=== PATIENT | female | born 1960 | race Hispanic/Latino ===

== ENCOUNTER 2022-08-05 15:26 | Inpatient (IN) | payer MEDICAID, SELFPAY ==
[2022-08-05] VITALS (7 sets, daily range): BP systolic 116–140; BP diastolic 52–74; PULSE 62–76; RESP 12–20; TEMP 36.8; O2SAT 97–100; BMI 29.3
--- NOTE | ~2022-08-05 | XR_ITS ---
EXAMINATION: XR abdomen obstructive series DATE: 08/09/2022 08:36 INDICATION: Small bowel obstruction. TECHNIQUE: Upright and supine views of the abdomen were obtained. COMPARISON: CT abdomen and pelvis 08/05/2022 FINDINGS: There are no dilated loops of bowel. There is oral contrast in the colon. The nasogastric t ube tip is in the stomach. No free intraperitoneal gas. IMPRESSION: 1. Normal bowel gas pattern. Reviewed, dictated and finalized at location A.
--- NOTE | ~2022-08-05 | CT_ITS ---
EXAMINATION: CT abdomen pelvis w con DATE: 08/05/2022 18:18 INDICATION: Severe upper abdominal pain, radiating to the back. Nausea, vomiting. History of cholecys tectomy 30 years ago TECHNIQUE: Computed tomography (CT) of the abdomen and pelvis was performed with 100 CC Omnipaque 350 intravenous contrast. Automated exposure control and iterative reconstruction technique were employe d. Exam dose: 329.98 mGy-cm total exam DLP. COMPARISON: None. FINDINGS: Minimal atelectasis at the lung bases. Normal heart size. No pericardial or pleural effusio n. Diffuse hepatic steatosis. There may be focal fat sparing or small cyst or hemangioma at the anterome dial margin of the lower right hepatic lobe (series 3 image 67). No hepatic space-occupying mass lesi on is noted otherwise. No bile duct or pancreatic duct dilatation. No pancreatic mass lesion or calci fication. Normal splenic size. Normal morphology of the left adrenal gland. Approximately 1.5 x 2.1 cm right adrenal mass. There is no known malignancy this is most likely an ad enoma. There are 2 lower pole right renal cysts, the larger measuring 9 mm. Probable several millimeter lowe r pole left renal cyst. No urinary tract calculus or hydroureteronephrosis. The urinary bladder is un remarkable. Uterus and ovaries are unremarkable. There is nonspecific mild fluid in the anterior cul-de-sac and posterior cul-de-sac. Normal caliber of the abdominal aorta. No intraperitoneal or retroperitoneal or pelvic mass lesion or adenopathy or ascites is detected. The gastric fundus and body or distended with fluid. There are jejunal segment is dilated up to 7 and 3.4 cm diameter, with fluid levels without identification of a definite transition zone. The distal small bowel however is decompressed. Diffusion diagnosis includes partial small bowel obstruction, in ternal hernia, enteritis, adynamic ileus. There are fluid levels in the ascending colon. Normal appendix. No suspicious osteolytic or osteoblastic lesions are noted. IMPRESSION: Dilated jejunal segments up to 3.8 cm diameter, with air-fluid levels. Differential diag nosis is given above. Consider small bowel series for further evaluation as clinically appropriate 1.5 x 2.1 cm right adrenal mass Small renal cysts Normal appendix Hepatic steatosis Reviewed, dictated and finalized at Location A. Reviewed, dictated and finalized at location A. IMPRESSION: Dilated jejunal segments up to 3.8 cm diameter, with air-fluid lev els. Differential diagnosis is given above. Consider small bowel series for fur ther evaluation as clinically appropriate 1.5 x 2.1 cm right adrenal mass Small renal cysts Normal appendix Hepatic steatosis
--- NOTE | ~2022-08-05 | XR_ITS ---
SMALL BOWEL SERIES ONLY INDICATION: Abdominal distention TECHNIQUE: Serial plain films and fluoroscopic spot films are performed following oral demonstration of thin barium. COMPARISON: CT dated 08/05/2022 FINDINGS: The duodenum and jejunum are dilated with transition in the distal jejunum. Transit time to the colon is less than 2 hours. The mid and distal small bowel are decompressed. IMPRESSION: 1: Dilated proximal small bowel with transition in the distal jejunum. Distal small bowel is decompr essed. Findings compatible with partial small bowel obstruction. Reviewed, dictated and finalized at location A. IMPRESSION: 1: Dilated proximal small bowel with transition in the distal jejunum. Distal small bowel is decompressed. Findings compatible with partial small bowel obstr uction.
--- NOTE | ~2022-08-05 | XR_ITS ---
XR chest 2V DATE: 08/05/2022 19:25 INDICATION: Upper abdominal pain TECHNIQUE: AP and lateral chest COMPARISON: 08/01/2022 CT abdomen pelvis FINDINGS: Normal heart size. No hilar or mediastinal enlargement. No pulmonary infiltrate or consolidation, pleural effusion or pulmonary vascular congestion or pneumo thorax. IMPRESSION: No active cardiopulmonary disease Reviewed, dictated and finalized at location A.
--- NOTE | ~2022-08-05 | XR_ITS ---
EXAMINATION: XR abdomen obstructive series DATE: 08/08/2022 08:45 INDICATION: Small bowel obstruction. TECHNIQUE: Upright and supine views of the abdomen on 3 radiographs were obtained. COMPARISON: CT abdomen and pelvis 09/04/2022 FINDINGS: There are no dilated loops of bowel. There is oral contrast in the colon. No free intraperi toneal gas. The nasogastric tube tip is in the stomach. IMPRESSION: 1. Normal bowel gas pattern. Reviewed, dictated and finalized at location A.
--- NOTE | ~2022-08-05 | XR_ITS ---
XR abdomen/kub 1V 08/07/2022 13:09 Indication: Small bowel obstruction Procedure: KUB Comparison: 08/06/2022 Findings: NG tube coiled in the stomach, partially visualized. There is been passage of contrast into the colon. Normal-appearing appendix. No significant small bowel dilation on the current study. Impression: 1: No definite small bowel dilation. Interval passage of contrast into the colon. Reviewed, dictated and finalized at location B. Impression: 1: No definite small bowel dilation. Interval passage of contrast into the colo n.
--- NOTE | ~2022-08-05 | XR_ITS ---
XR abdomen NG/feed tube insert DATE: 08/06/2022 15:29 INDICATION: NG tube placement TECHNIQUE: Portable upright AP abdomen on 08/06/2022 at 1525 hours COMPARISON: None FINDINGS: A nasogastric tube is present in the gastric fundus, the proximal side-port approximately 9 cm distal to the diaphragmatic hiatus. Dilated jejunum with contrast material is again noted. IMPRESSION: NG tube in gastric fundus Reviewed, dictated and finalized at Location A. Reviewed, dictated and finalized at location A. IMPRESSION: NG tube in gastric fundus
--- NOTE | 2022-08-05 15:52 | ED.ABDPAIN ---
HPI - Abdominal Pain General Chief Complaint: Abdominal Pain Stated Complaint: abdominal pain that began yesterday with n/v Time Seen by Provider: 08/05/22 15:36 Source: certified court/medical interpreter History of Present Illness HPI narrative: Patient is a 62-year-old female with a history of cholecystectomy 30 years ago, pre-diabetes, hyperlipidemia here for evaluation of severe abdominal pain for the past day. Patient states the pain is in her upper region, is severe, stabbing in nature, is unrelieved by home medications including Bentyl. The pain came on after a meal last night. Also notes pain in her back. Patient was seen in the ED at [facility] yesterday and had a normal workup and was diagnosed with gastritis. Patient states the pain is not any better and worsened today. Denies any diarrhea, fever, weakness. Last BM was at 1PM today and was small in caliber. Reports diarrhea over the past week. Had one episode of vomiting non-bloody emesis yesterday. Related Data Allergies Allergy/AdvReac Type Severity Reaction Status Date / Time No Known Allergies Allergy Unverified 06/24/20 12:20 Review of Systems Review of Systems: Gen: Denies fevers or chills Eyes: Denies eye pain or visual change ENT: Denies congestion Respiratory: Denies shortness of breath or cough CV: Denies chest pain or palpitations GI: Denies abdominal pain nausea, emesis or diarrhea : denies burning, urgency, frequency or hematuria Musculoskeletal: Denies back pain or muscle pain Neuro: Denies numbness, tingling, weakness or focal weakness Skin: Denies rash Except as documented, all other systems reviewed and negative Exam Narrative: APPEARANCE: Uncomfortable appearing. Head: Normocephalic and atraumatic. EYES: PERRLA/EOMI, conjunctivae clear NOSE: No nasal drainage EARS: External ear normal in appearance THROAT: Oropharynx is clear. Mucous membranes are moist. NECK: Supple. No adenopathy, no masses. RESPIRATORY: Airway patent, respirations nonlabored. Clear to auscultation bilaterally, no rales, rhonchi, wheezing. CARDIOVASCULAR: 2/6 systolic murmur at RUSB. Regular rate and rhythm without rubs or gallops. equal pulses in all 4 extremities. ABDOMINAL: tender in epigastrium, abdomen is not distended. Normoactive bowel sounds. Soft. No rebound tenderness or guarding. MUSCULOSKELETAL: Extremities are warm and well-perfused. Moves all extremities well. No edema. NEURO: Normal speech. No focal neurologic deficits. SKIN: vertical surgical scar over RUQ. PSYCHIATRIC: Normal affect/mood. Course Consultations Consultation #1: Spoke with Dr. Palencia, general surgery, states that patient may be admitted to hospitalist for pain control, CT without transition point and is reassuring patient is moving her bowels, will consult Vital Signs Vital signs: Vital Signs Temperature 98.2 F 08/05/22 15:27 Pulse Rate 62 08/05/22 15:27 Respiratory Rate 12 08/05/22 15:27 Blood Pressure 126/58 L 08/05/22 15:27 Pulse Oximetry 98 08/05/22 15:27 Oxygen Delivery Room Air 08/05/22 15:27 Temperature 98.2 F 08/05/22 15:27 Pulse Rate 74 08/05/22 18:30 Respiratory Rate 20 08/05/22 18:30 Blood Pressure 116/61 08/05/22 18:30 Pulse Oximetry 98 08/05/22 18:30 Oxygen Delivery Room Air 08/05/22 15:27 MDM - Abdominal Pain MDM Narrative Medical decision making narrative: 62-year-old female here for evaluation of epigastric abdominal discomfort over the past day with 1 episode of vomiting and no changes in her stools. On arrival she is very uncomfortable appearing, tender in her epigastric region. Her vital signs are normal. She has a slight leukocytosis to 13.4 but her lactic is normal. UA unremarkable. Abdomen pelvis CT with distended jejunum of unclear etiology; possible SBO vs ileus vs enteritis.unclear if this is explaining patient's pain. Cardiac work-up was initiated with an EKG and troponin, both of which were nonischemic. Longevity of pain and lack of
--- NOTE | 2022-08-05 15:56 | ECG_ITS ---
Measurements Intervals [place] Rate: 64 P: 37 GA: 131 QRS: -4 QRSD: 134 T: 30 QT: 403 QTc: 418 Interpretive Statements SINUS RHYTHM WITH SINUS ARRHYTHMIA RIGHT BUNDLE BRANCH BLOCK ABNORMAL ECG COMPARED TO ECG 02/10/2019 16:19:18 NO SIGNIFICANT CHANGES Electronically Signed On 08-05-2022 18:25:33 CDT by Anibal Herbert D.O.
[2022-08-05 15:58] LABS: Basophils Absolute Auto 0.1 K/mm3 (0.0-0.1); Basophils Percent Auto 0.4 % (0.2-1.2); Eosinophils Absolute Auto 0.2 K/mm3 (0-0.3); Eosinophils Percent Auto 1.2 % (0-4.4); Hematocrit 36.9 % (37.0-47.0); Hemoglobin 12.5 g/dL (12.0-15.0); Immature Granulocyte Absolute 0.09 K/mm3 (0.00-0.031); Immature Granulocyte Percent A 0.7 % (0-0.5); Immature Platelet Fraction Pct 10.8 % (0.9-11.2); Lymphocytes Absolute Auto 1.67 K/mm3 (0.9-3.2); Lymphocytes Percent Auto 12.5 % (18.3-44.2); Mean Corpuscular HGB Conc 33.9 g/dl (32-36); Mean Corpuscular Volume 88.7 fl (80-100); Mean Platelet Volume 11.2 fl (7.4-10.4); Monocytes Absolute Auto 1.3 K/mm3 (0.1-0.6); Monocytes Percent Auto 9.4 % (2.6-8.5); Neutrophils Absolute Auto 10.1 K/mm3 (1.3-6.7); Neutrophils Percent Auto 75.8 % (45.5-73.1); Platelet Count Result 60 k/mm3 (150-375); Red Blood Count 4.16 M/mm3 (4.2-5.4); Red Cell Distribution Width 13.5 % (11.5-14.5); White Blood Count 13.4 K/mm3 (4.5-10.0)
[2022-08-05] MEDS: ONDANSETRON INJ 4 MG/2 ML VIAL IV PUSH (16:01)
[2022-08-05] MEDS: FAMOTIDINE 20 MG/2 ML VIAL IV PUSH (16:02)
[2022-08-05] MEDS: MORPHINE SULFATE (*CRX) 4 MG/ML INJ IV PUSH (16:05)
[2022-08-05 16:12] LABS: Alanine Aminotransferase 43 U/L (6-35); Albumin Level 3.5 g/dL (3.5-5.1); Alkaline Phosphatase 60 U/L (38-126); Anion Gap 7 mmol/L (8-16); Aspartate Amino Transferase 44 U/L (14-36); Bilirubin,Total 0.6 mg/dL (0.2-1.3); Blood Urea Nitrogen 21 mg/dL (7-17); Calcium 7.8 mg/dL (8.4-10.2); Carbon Dioxide 28 mmol/L (22-30); Chloride 100 mmol/L (98-107); Estimated CRCL calculation 56 ml/min; Estimated Glomerular Filt Rate > 60; Glucose 132 mg/dL (65-110); Lipase 14 U/L (23-300); Sodium 135 mmol/L (137-145)
[2022-08-05 16:32] LABS: Troponin I < 0.012 ng/mL (0.000-0.034)
[2022-08-05 18:14] LABS: Appearance Urine Slightly Cloudy (Clear); Bilirubin Urine 1+ (Negative); Blood Urine Negative (Negative); Color Urine Yellow (Yellow); Glucose Urine UA Negative (Negative); Ketones Urine 1+ mg/dL (Negative); Leukocyte Esterase Ur Negative LEU/UL (Negative); Nitrate Urine Negative (Negative); Protein Urine Trace mg/dL (Negative); pH Urine 6.5 (5.0-9.0)
[2022-08-05 18:30] LABS: Bacteria Urine Trace /hpf; Mucus Urine Rare /lpf; RBC Urine 0-2 /hpf (0-2); Squamous Epithelial Cell Urine Rare /hpf (Few); WBC Urine 0-3 /hpf
[2022-08-05 18:44] LABS: Add Urine Microscopic? YES
[2022-08-05] MEDS: SODIUM CHLORIDE 0.9% IV 1,000 ML 999 ML IV CONT (19:06)
[2022-08-05] MEDS: MORPHINE SULFATE (*CRX) 2 MG/ML INJ IV PUSH (19:06)
[2022-08-05 19:16] LABS: Lactic Acid Reflex 0.8 mmol/L (0.7-2.0)
--- NOTE | 2022-08-05 19:29 | PM.IMHP ---
H&P: HPI History of Present Illness Date/Time: 08/05/22 19:29 Chief Complaint: Abdominal pain Narrative: This is a 62-year-old female with past medical history significant for type 2 diabetes mellitus, hypertension, dyslipidemia. patient comes to the emergency room due to abdominal pain with nausea and vomiting just recently discharged from [facility] where she presented for same symptoms she was discharged home but returned to our emergency room due to intractable nausea vomiting and abdominal pain patient denies any fevers, rigors, chills, shortness of breath, sputum production, cough, hematemesis, bright red blood per rectum, melena, she has been in her usual state of health up until this pain started 2 days ago, No weight loss, no change in stool character, she is usually able to tolerate or her meals. Preliminary workup was significant for AST/ALT 44/46 total bili 0.6 lipase 14 lactic acid 0.[id number] of abdomen and pelvis was reported as: IMPRESSION:? Dilated jejunal segments up to 3.8 cm diameter, with air-fluid levels. Differential diagnosis is given above. Consider small bowel series for further evaluation as clinically appropriate 1.5 x 2.1 cm right adrenal mass Small renal cysts Normal appendix Hepatic steatosis a chest x-ray was reported as: IMPRESSION: No active cardiopulmonary disease? patient is been admitted for further evaluation management and treatment. Review of Systems Review of Systems: abdominal pain, nausea, vomiting. Constitutional: Constitutional: Denies chills, Denies fever(s), Denies malaise, Denies night sweats and Denies weakness Eyes: Eyes: Denies change in vision ENT: Denies dysphagia, Denies vertigo, Denies dizziness and Denies odynophagia Cardiovascular: Cardiovascular: Denies chest pain, Denies syncope, Denies irregular heart rhythm, Denies lightheadedness and Denies palpitations Respiratory: Respiratory: Denies chest congestion, Denies cough, Denies pain on inspiration and Denies dyspnea Gastrointestinal: Gastrointestinal: Reports abdominal pain, Denies dyspepsia, Denies heartburn, Reports nausea and Reports vomiting Genitourinary: Genitourinary: Denies dysuria Musculoskeletal: Musculoskeletal: Denies back pain, Denies myalgias and Denies muscle weakness Integumentary/Breasts: Skin/Breast: Denies rash Neurologic: Denies vertigo, Denies dizziness, Denies focal weakness and Denies Sensory deficit (Neuro) Psychiatric: Psychiatric: Reports no additional psychiatric complaints and Reports as per HPI Endocrine: Endocrine: Denies cold intolerance, Denies flushing, Denies heat intolerance, Denies polyphagia, Denies polydipsia and Denies palpitations Hematologic/Lymphatic: Hematologic/Lymphatic: Reports no additional hematologic/lymphatic complaints and Reports as per HPI Allergic/Immunologic: Allergic/Immunologic: Reports no additional allergic/immunologic complaints and Reports as per HPI [facility] Social History Social History (System 06/24/20 @ 12:20 by Adrian Moya) Smoking packs per day: 1 Smoking cigarettes per day: 20.0 Years smoked: 40 Smoking pack-years: 40.00 Smoking status: Current every day smoker Tobacco type: cigarettes and e-cigarettes/vaping Alcohol intake: never Substance use: never Spiritual care concerns: No Meds Home Medications and Allergies Home Medications Medication Instructions Recorded Confirmed Type fenofibrate 40 mg tablet 40 mg PO HS 08/05/22 08/05/22 History levothyroxine 125 mcg tablet 125 mcg PO DAILY 08/05/22 08/05/22 History meloxicam 7.5 mg tablet 7.5 mg PO PRN PRN ARTHRITIS PAIN 08/05/22 08/05/22 History metformin 500 mg tablet 500 mg PO DAILY 08/05/22 08/05/22 History metoprolol succinate 25 mg 25 mg PO DAILY 08/05/22 08/05/22 History tablet,extended release 24 hr Allergies Allergy/AdvReac Type Severity Reaction Status Date / Time No Known Allergies Allergy Verified 08/05/22 21:28 Vital
--- NOTE | 2022-08-05 22:09 | ADMGEN ---
This patient, Virgie Polo, was admitted to 3 [facility] Surg Room 313-01 at 2109. Patient/family oriented to hospital policies and general routines including ID bracelet, bed and alarms, visiting hours, pain management, procedures, bathroom and other care routines, personal items, smoking policy, room service/diet, and visiting hours. Information on how to activate the Rapid Response Team has been discussed. Patient/Family are encouraged to report perceived risks to care and to ask questions if they do not understand what they are told or what they should do.
[2022-08-05] MEDS: HYDROmorphone HCL INJ (*CRX) 1 MG/ML SYR 0.5 MG IV PUSH (23:23)
[2022-08-06] MEDS: DEXTROSE 5%/0.45% SOD CHL 1,000 ML 75 ML IV CONT (00:55)
[2022-08-06] MEDS: ONDANSETRON INJ 4 MG/2 ML VIAL IV PUSH ×2 (02:09→12:00)
[2022-08-06] MEDS: HYDROmorphone HCL INJ (*CRX) 1 MG/ML SYR 0.5 MG IV PUSH ×5 (02:39→22:12)
[2022-08-06 05:45] VITALS: BP 115/45; PULSE 75; RESP 14; TEMP 36.6; O2SAT 100
[2022-08-06 08:25] LABS: Glucose Point of Care 153 mg/dl (65-105)
[2022-08-06 08:42] LABS: Hematocrit 36.1 % (37.0-47.0); Hemoglobin 12.1 g/dL (12.0-15.0); Immature Platelet Fraction Pct 13.7 % (0.9-11.2); Mean Corpuscular HGB Conc 33.5 g/dl (32-36); Mean Corpuscular Hemoglobin 30.2 pg (26-34); Mean Platelet Volume 11.7 fl (7.4-10.4); Platelet Count Result 77 k/mm3 (150-375); Red Blood Count 4.01 M/mm3 (4.2-5.4); Red Cell Distribution Width 13.8 % (11.5-14.5)
--- NOTE | 2022-08-06 10:31 | PM.CNGS ---
Assessment and Plan Assessment and plan (1) Small bowel obstruction: Code(s): K56.609 - Unspecified intestinal obstruction, unspecified as to partial versus complete obstruction Status: Acute Assessment and Plan: patient has some findings on the CT concerning for small bowel obstruction. He does have a prior history of open cholecystectomy, therefore adhesions would be suspected. She is in the process of getting a small-bowel follow-through at this time. She has not had an NG tube placed yet, but based on the CT findings she will possibly need NG tube placed. Will await follow-up imaging and determine further treatment options from there. If small-bowel follow-through shows complete obstruction, she might require surgical exploration in the next 1-2 days. (2) Thrombocytopenia: Code(s): D69.6 - Thrombocytopenia, unspecified Status: Acute Assessment and Plan: Platelets noted to be very low on admission and remain at 77,000 today. No known prior history of coagulopathy. Will check PT INR and repeat CBC tomorrow. History of Present Illness Consult details Consult date: 08/06/22 Reason for consult: other ( Small-bowel obstruction) Narrative: this is a 62-year-old woman who I am asked to see for a possible small-bowel obstruction. She presented to the emergency department yesterday with abdominal pain for the past several days. She has not had a bowel movement for 2-3 days. She continues to have pain since being admitted last night. She does have a prior history of an open cholecystectomy. She denies any symptoms like this in the past. CT in the emergency department showed dilated jejunum with air-fluid levels without definite transition point. She was admitted for further treatment. Review of Systems Review of Systems: All systems reviewed & are unremarkable except as noted in HPI and below Eyes: Eyes: Denies change in vision ENT: Denies hearing loss, Denies neck pain and Denies sore throat Cardiovascular: Cardiovascular: Denies chest pain and Denies dyspnea Respiratory: Respiratory: Denies cough, Denies dyspnea and Denies wheezing Gastrointestinal: Gastrointestinal: Reports as per HPI Genitourinary: Genitourinary: Denies hematuria and Denies dysuria Musculoskeletal: Musculoskeletal: Denies arthralgias, Denies joint swelling and Denies neck pain Allergic/Immunologic: Allergic/Immunologic: Denies wheezing [facility] Past Medical History Medical History (Updated 08/06/22 @ 10:36 by Mark Anthony Palencia DO) Hyperlipidemia Hypertension Hypothyroidism Surgical History Surgical History (Updated 08/06/22 @ 10:36 by Mark Anthony Palencia DO) History of cholecystectomy Family History Family History (Updated 08/06/22 @ 10:37 by Mark Anthony Palencia DO) Other Family history unknown Social History Social History (System 06/24/20 @ 12:20 by Adrian Moya) Smoking packs per day: 1 Smoking cigarettes per day: 20.0 Years smoked: 40 Smoking pack-years: 40.00 Smoking status: Current every day smoker Tobacco type: cigarettes and e-cigarettes/vaping Alcohol intake: never Substance use: never Spiritual care concerns: No Meds Home Medications and Allergies Home Medications Medication Instructions Recorded Confirmed Type fenofibrate 40 mg tablet 40 mg PO HS 08/05/22 08/05/22 History levothyroxine 125 mcg tablet 125 mcg PO DAILY 08/05/22 08/05/22 History meloxicam 7.5 mg tablet 7.5 mg PO PRN PRN ARTHRITIS PAIN 08/05/22 08/05/22 History metformin 500 mg tablet 500 mg PO DAILY 08/05/22 08/05/22 History metoprolol succinate 25 mg 25 mg PO DAILY 08/05/22 08/05/22 History tablet,extended release 24 hr blood-glucose meter (True Metrix 08/06/22 08/06/22 History Glucose Meter) Allergies Allergy/AdvReac Type Severity Reaction Status Date / Time No Known Allergies Allergy Verified 08/05/22 21:28 Vital Signs Vital Signs - 24 hr 08/05/22 15:
--- NOTE | 2022-08-06 11:00 | PC.NURSE ---
At approximately 0830, pt was taken to radiology for a small bowel follow through procedure. At approximately 1100, I was summoned to pt's room by alleged members of pt's family. Upon entering the room, I find four people in the room including one person lounging on the bed and three other people scattered throughout the room. There were 3 women and 1 man. Multiple people began yelling at me and demanding information, I was not able to understand what was being yelled due to multiple people simultaneously yelling at me and the television volume extremely loud (the person laying on the bed was flipping through tv channels). I attempted to state my name and explain that I was the nurse when the male person demanded to know where the patient was. I replied, she is having a procedure when he interrupted me by snapping, she's been gone a long time and it should have been done by now. The doctor said he doesn't know what is taking so long. Where is she? I attempted to answer the question when several of the women began talking loudly in [place] simultaneously. I do not speak [place] so had to idea what they were saying. I began switching out the IV fluids so they would be ready for administration upon pt's return all the while they were all yelling in [place] simultaneously. I then explained that I do not know when the pt will return as the procedure can take a long time; however, there are only 2 visitors allowed in the room at any given time and that visiting hours are from 10am to 8pm. Several of the people began yelling again. I reiterated that there are only 2 visitors allowed in the room at any given time and the remaining people can wait downstairs in the lobby and they can take turns switching places in the pt's room. The person on the bed finally got off the bed, they all four started speaking in [place] to one another and then they all left the room. I finished prepping the IV fluids and left the room.
[2022-08-06] MEDS: LACTATED RINGERS 1,000 ML 100 ML IV CONT ×2 (11:51→20:47)
[2022-08-06] MEDS: PANTOPRAZOLE SODIUM IV 40 MG VIAL IV PUSH ×2 (11:51→20:38)
[2022-08-06 11:58] LABS: Glucose Point of Care 143 mg/dl (65-105)
--- NOTE | 2022-08-06 14:16 | PC.NURSE ---
At approximately 1230, I entered pt's room to check on her. Pt speaks minimal to no Hebrew. Pt kept stating enmanuel which I knew meant she needed to go to the bathroom. I assisted pt with IV pole to the bathroom. Pt removed the hat from the toilet. I put the hat back and tried to explain that the had needed to remain so we could measure output but I got no sense that she understood what I was saying. Pt began projectile vomiting into the hat. After several bouts of vomiting, pt dumped the hat and then sat down on the toilet. I attempted to help but pt kept pushing me away. When pt had returned from radiology, the tech (who speaks Serbian fluently) informed me that pt had told her that she had a bowel movement while in radiology. I thought pt might be attempting to have another but she did not. By this time the AQUATIC ECOLOGIST had come to the room to assist me in cleaning up pt and providing additional emesis bags. The AQUATIC ECOLOGIST informed me that pt had projectile vomiting prior to going to radiology which is similar in color and volume as the present episode. Pt was cleaned up and returned to the bed. I administered zofran, charted the emesis episodes, and contacted the hospitalist regarding the aforementioned episodes.
--- NOTE | 2022-08-06 14:32 | PC.NURSE ---
At approximately 1400, I was informed by the CHILDREN LIBRARIAN that pt's family had returned to pt's room and was demanding to speak with me. I was also made aware that the CHILDREN LIBRARIAN witnessed the family members giving pt water and trying to give her other items to be ingested. It was explained to them that pt was and remains NPO therefore it is unsafe for her to be having anything. Upon entering the room, there were 2 women in the room one of which was standing between the window and pt's bed and was pushing buttons on the IV pump. She looked up at me, made eye contact and stopped. As I walked towards the IV pump, I made eye contact with the other woman and stated that I was informed she wanted to talk to me and asked her if she had questions. I then stated to the woman by the IV pump, excuse me I need to fix that and pointed to the pump. She came away from the IV pump and exchanged looks with the other woman. I asked again, Do you have questions for me or is there something you wanted to talk about? They both ignored me. The pt, who had been laying in the bed with her eyes closed, sat up and stated in Qatari that I wanted to know if they had questions (I recognized enough Qatari words to know that is what she was saying). One of the women then stated in clear [place]ian, my brother would be the best one to talk to I will go get him, and she left the room. The brother entered the room and asked if the reports from the scan was back. I explained that pt has had several scans and the most recent one which was the follow through study report was back and it states that pt has a small bowel obstruction. I explained that pt is going to need to have an NG tube placed and that it should help with the pain and vomiting. He seemed pleased with the information and that there was a plan going forward. I stated that normally we ask visitors to leave while a procedure if performed but due to the language barriers it would be appreciated if he could continue translating to assist in making the procedure which requires pt's participation easier and more successful for pt. He agreed so I explained the process of inserting the NG tube so that he could explain it to the pt. He spoke to her in Qatari which I assumed was translating what I explained to him. The man then asked me how long have only 2 people been allowed in the room. I did not understand and thought he meant patients so I replied that this was a private room. He stated how long have only 2 visitors been allowed in the room. I explained that the policy regarding visitors is set by the administrators and I have no control over it but that many of the rooms have 2 patients so that 2 visitors per patient and now 6 people in a room that is already crowded with 2 patients and 2 sets of beds, IV poles, chairs, etc. He cut me off and stated that some man, not you, but some other man yelled at them about visitors. During this the woman who remained in the room interjected that that man gave attitude and then she got up and left the room. The man in the room continued that they understand the rules now and will follow them but some man yelled at them and there is a way to present things and that was not it. I stated, I'm sorry that happened to you to which he replied, it wasn't you it is that other man, you're fine. I attempted to start the procedure to place the NG tube and the man asked me to wait stating, my mother is more comfortable with my sister I will go get her and let her help you. He left the room. I was then informed by the charge nurse that pt's family was requesting a different nurse.
[2022-08-06] MEDS: PROMETHAZINE HCL 25 MG/ML AMPUL 12.5 MG IV PUSH (14:36)
--- NOTE | 2022-08-06 15:32 | PM.IMPN ---
Progress Note: A&P Assessment and Plan (1) Epigastric abdominal pain: Code(s): R10.13 - Epigastric pain Status: Acute Assessment and Plan: supportive care NPO IV fluids daily intake and output surgical consult likely related to sb0 (2) Intractable nausea and vomiting: Code(s): R11.2 - Nausea with vomiting, unspecified Status: Acute Assessment and Plan: NPO supportive care PPI see plan above (3) Tobacco dependence: Code(s): F17.200 - Nicotine dependence, unspecified, uncomplicated Status: Acute Assessment and Plan: nicotine patch as needed patient used to smoke 1 pack of cigarettes a day currently vapes Subjective Date/time seen: 08/06/22 15:32 haivng ongoing nv Exam Narrative: Laying in a stretcher Const: General: comfortable, no acute distress, well developed, alert, awake and other ( well-appearing) Nutritional Appearance: average body habitus Orientation/consciousness: patient oriented x3 HENMT: Head: normal to inspection, normocephalic and atraumatic Ears: hearing grossly normal bilaterally Face and sinus: normal facial exam Eyes: General: appearance normal, both eyes and all related structures Pupils: Equal, round and reactive pupils present EOM: EOMs intact bilaterally Neck: Neck: full ROM, no lymphadenopathy and no JVD Thyroid: thyroid normal Lymphatic: no lymphadenopathy noted Resp: Effort & Inspection: normal respiratory effort and able to speak in complete sentences Auscultation: clear to auscultation bilaterally Cardio: Jugular venous distension: no JVD Rate: regular rate Rhythm: regular rhythm Heart sounds: S1 normal heart sound present and S2 normal heart sound present GI: Inspection: normal to inspection : General: Yes deferred Skin: Rashes: no rashes Wounds: no wounds Neuro: General: patient oriented x3 and CN's II-XI intact bilaterally Cranial nerves: Yes CN's II-XII intact bilaterally and Yes Equal, round and reactive pupils present Cognition (Neuro): normal cognition Speech: normal speech Gait exam (Neuro): Normal gait present Motor exam (neuro): 5/5 motor strength present throughout Sensory Exam: No Sensory deficit (Neuro) Extrem: General: normal to inspection, full ROM, no joint enlargement and no pedal edema Objective Data Vital Signs Vital Signs: Vital Signs - 24 hr 08/05/22 18:30 08/05/22 16:35 08/05/22 17:30 Temperature Pulse Rate 74 76 70 Respiratory Rate 20 19 20 Blood Pressure 116/61 132/74 140/63 Pulse Oximetry 98 100 100 Oxygen Delivery 08/05/22 20:04 08/05/22 21:57 08/05/22 22:40 Temperature 98.2 F Pulse Rate 76 75 75 Respiratory Rate 20 14 14 Blood Pressure 123/63 120/52 L Pulse Oximetry 100 97 97 Oxygen Delivery Room Air 08/06/22 05:45 08/06/22 08:00 Temperature 97.9 F Pulse Rate 75 Respiratory Rate 14 Blood Pressure 115/45 L Pulse Oximetry 100 Oxygen Delivery Room Air Intake/Output Intake/Output: Intake & Output 08/03/22 08/04/22 08/05/22 08/06/22 23:59 23:59 23:59 23:59 Intake Total 1000 Output Total 1550 Balance 1000 -1550 Meds/Results Medications: Active Medications Generic Name Dose Route Start Last Admin Trade Name Freq PRN Reason Stop Dose Admin Hydromorphone HCl 0.5 mg 08/05/22 23:02 08/06/22 14:38 Hydromorphone Hcl Inj (*Crx) 1 Mg/Ml Syr IV PUSH 0.5 mg Q3H PRN Administration Pain Rated 7-10 Lactated Ringer's 1,000 mls @ 100 mls/hr 08/06/22 10:30 08/06/22 11:51 Lr - Lactated Ringers Iv IV CONT 100 mls/hr .Q10H MARIANA Administration Ondansetron HCl 4 mg 08/05/22 23:03 08/06/22 12:00 Ondansetron Inj 4 Mg/2 Ml Vial IV PUSH 4 mg Q4H PRN Administration Nausea And Vomiting Pantoprazole Sodium 40 mg 08/06/22 09:00 08/06/22 11:51 Pantoprazole Sodium Iv 40 Mg Vial IV PUSH 40 mg Q12HR MARIANA Administration Promethazine HCl 12.5 mg 08/06/22 12:13 08/06/22 14:36
[2022-08-06 16:01] VITALS: BP 113/53; PULSE 72; RESP 16; TEMP 36.1; O2SAT 93
[2022-08-06 16:47] LABS: Glucose Point of Care 117 mg/dl (65-105)
[2022-08-06 20:20] VITALS: PULSE 74; RESP 16; O2SAT 94
[2022-08-06 22:00] VITALS: BP 123/56; PULSE 74; RESP 16; TEMP 37.3; O2SAT 94
[2022-08-06 23:40] LABS: Glucose Point of Care 132 mg/dl (65-105)
[2022-08-07] MEDS: HYDROmorphone HCL INJ (*CRX) 1 MG/ML SYR 0.5 MG IV PUSH ×4 (03:38→20:06)
[2022-08-07 06:00] VITALS: BP 111/56; PULSE 74; RESP 18; TEMP 37.3; O2SAT 94
[2022-08-07 06:29] LABS: Glucose Point of Care 113 mg/dl (65-105)
[2022-08-07] MEDS: LACTATED RINGERS 1,000 ML 100 ML IV CONT (06:37)
[2022-08-07 06:56] LABS: Hematocrit 33.2 % (37.0-47.0); Hemoglobin 11.1 g/dL (12.0-15.0); Mean Corpuscular HGB Conc 33.4 g/dl (32-36); Mean Corpuscular Hemoglobin 30.7 pg (26-34); Mean Corpuscular Volume 91.7 fl (80-100); Platelet Count Result 100 k/mm3 (150-375); Red Blood Count 3.62 M/mm3 (4.2-5.4); Red Cell Distribution Width 13.5 % (11.5-14.5); White Blood Count 5.1 K/mm3 (4.5-10.0)
[2022-08-07 07:00] LABS: INR 1.2; Prothrombin Time 14.6 Seconds (11.1-14.7)
[2022-08-07 07:01] LABS: Partial Thromboplastin Time 28.9 SECONDS (22.3-36.8)
[2022-08-07 07:03] LABS: Anion Gap 8 mmol/L (8-16); Blood Urea Nitrogen 16 mg/dL (7-17); Calcium 7.3 mg/dL (8.4-10.2); Carbon Dioxide 33 mmol/L (22-30); Chloride 96 mmol/L (98-107); Estimated CRCL calculation 63 ml/min; Estimated Glomerular Filt Rate > 60; Glucose 111 mg/dL (65-110); Potassium 3.3 mmol/L (3.4-5.0); Sodium 137 mmol/L (137-145)
[2022-08-07 07:47] LABS: Band Neutrophils Percent 38 % (0-6); Basophils Absolute Manual 0.05 K/mm3 (0.0-0.1); Basophils Percent Manual 1 % (0-1); Eosinophils Absolute Manual 0.15 K/mm3 (0.02-0.5); Eosinophils Percent Manual 3 % (0-4); Lymphocytes Absolute Manual 1.02 K/mm3 (1.1-4.5); Monocytes Absolute Manual 0.45 K/mm3 (0.1-0.90); Monocytes Percent Manual 9 % (3-9); Neutrophils Absolute Manual 3.41 K/mm3 (1.7-7.2); Neutrophils Percent Manual 29 % (46-73); Schistocytes None Seen (NORMAL); Total Cells Counted 100
[2022-08-07] MEDS: POTASSIUM CHLORIDE INJ 40 MEQ in SODIUM CHLORIDE 0.9% IV 500 ML 130 MEQ IVPB (09:53)
[2022-08-07] MEDS: PANTOPRAZOLE SODIUM IV 40 MG VIAL IV PUSH ×2 (10:20→20:21)
--- NOTE | 2022-08-07 11:21 | PM.IMPN ---
Progress Note: A&P Assessment and Plan (1) Thrombocytopenia: Code(s): D69.6 - Thrombocytopenia, unspecified Status: Acute Assessment and Plan: Improved, monitor (2) Small bowel obstruction: Code(s): K56.609 - Unspecified intestinal obstruction, unspecified as to partial versus complete obstruction Status: Acute Assessment and Plan: appreciate surgical input. Continue NG tube to low intermittent suction. (3) Intractable nausea and vomiting: Code(s): R11.2 - Nausea with vomiting, unspecified Status: Acute (4) Diabetes: Code(s): E11.9 - Type 2 diabetes mellitus without complications Status: Acute Assessment and Plan: blood sugars look good. Subjective Date/time seen: 08/07/22 11:21 patient complaining of abdominal pain. Objective Data Vital Signs Vital Signs: Vital Signs - 24 hr 08/06/22 16:01 08/06/22 22:00 08/06/22 20:20 Temperature 97.0 F L 99.2 F Pulse Rate 72 74 74 Respiratory Rate 16 16 16 Blood Pressure 113/53 L 123/56 L Pulse Oximetry 93 94 94 Oxygen Delivery Room Air 08/07/22 06:00 Temperature 99.1 F Pulse Rate 74 Respiratory Rate 18 Blood Pressure 111/56 L Pulse Oximetry 94 Oxygen Delivery Intake/Output Intake/Output: Intake & Output 08/04/22 08/05/22 08/06/22 08/07/22 23:59 23:59 23:59 23:59 Intake Total 1000 1000 1000 Output Total 2600 1150 Balance 1000 -1600 -150 Meds/Results Medications: Active Medications Generic Name Dose Route Start Last Admin Trade Name Freq PRN Reason Stop Dose Admin Hydromorphone HCl 0.5 mg 08/05/22 23:02 08/07/22 09:59 Hydromorphone Hcl Inj (*Crx) 1 Mg/Ml Syr IV PUSH 0.5 mg Q3H PRN Administration Pain Rated 7-10 Lactated Ringer's 1,000 mls @ 100 mls/hr 08/06/22 10:30 08/07/22 06:37 Lr - Lactated Ringers Iv IV CONT 100 mls/hr .Q10H MARIANA Administration Potassium Chloride 40 meq/ 520 mls @ 130 mls/hr 08/07/22 08:30 08/07/22 09:53 Sodium Chloride IVPB 08/07/22 12:29 130 mls/hr ONCE ONE Administration Ondansetron HCl 4 mg 08/05/22 23:03 08/06/22 12:00 Ondansetron Inj 4 Mg/2 Ml Vial IV PUSH 4 mg Q4H PRN Administration Nausea And Vomiting Pantoprazole Sodium 40 mg 08/06/22 09:00 08/07/22 10:20 Pantoprazole Sodium Iv 40 Mg Vial IV PUSH 40 mg Q12HR MARIANA Administration Promethazine HCl 12.5 mg 08/06/22 12:13 08/06/22 14:36 Promethazine Hcl 25 Mg/Ml Ampul IV PUSH 12.5 mg Q4H PRN Administration Nausea And Vomiting Radiology Results: ITS Impressions Abdomen/Pelvis CT 08/05/22 18:23 IMPRESSION: Dilated jejunal segments up to 3.8 cm diameter, with air-fluid levels. Differential diagnosis is given above. Consider small bowel series for further evaluation as clinically appropriate 1.5 x 2.1 cm right adrenal mass Small renal cysts Normal appendix Hepatic steatosis Chest X-Ray 08/05/22 19:34 IMPRESSION: No active cardiopulmonary disease Upper GI and Small Bowel X-Ray 08/06/22 11:56 IMPRESSION: 1: Dilated proximal small bowel with transition in the distal jejunum. Distal small bowel is decompressed. Findings compatible with partial small bowel obstruction. Abdomen X-Ray 08/06/22 15:33 IMPRESSION: NG tube in gastric fundus Labs Labs: Laboratory Results - last 24 hr 08/06/22 08/06/22 08/06/22 11:54 16:42 23:22 WBC RBC Hgb Hct MCV MCH MCHC RDW Plt Count MPV Immature Gran % (Auto) Neut % (Auto) Lymph % (Auto) Thomas % (Auto) Eos % (Auto) Baso % (Auto) Lymph # (Auto) Thomas # (Auto) Eos # (Auto) Baso # (Auto) Abs Immat Gran (auto) Absolute Neuts (auto) Absolute Nucleated RBC Total Counted Neutrophils % (Manual) Band Neutrophils % Lymphocytes % (Manual) Monocytes % (Manual) Eosinophils % (Manual) Basophils % (Manual) Nucleated RBC %
[2022-08-07 11:45] LABS: Glucose Point of Care 94 mg/dl (65-105)
--- NOTE | 2022-08-07 12:09 | PM.PNGS ---
Progress Note: A&P Assessment and Plan (1) Small bowel obstruction: Code(s): K56.609 - Unspecified intestinal obstruction, unspecified as to partial versus complete obstruction Status: Acute Assessment and Plan: Still not much improvement since NG placed yesterday. Will get KUB today. If still very dilated and obstructed, might need to consider Exploratory laparotomy today. (2) Thrombocytopenia: Code(s): D69.6 - Thrombocytopenia, unspecified Status: Acute (3) Hypothyroidism: Code(s): E03.9 - Hypothyroidism, unspecified Status: Acute Subjective Subjective Date/Time Seen: 08/07/22 12:09 Interval history: Still having pain. No flatus or BM today. She did have a small BM during the SBFT yesterday. She feels like she has to have a BM but can't. Exam GI: Inspection: non-distended GI Palp: Yes Soft to palpation, Yes Tenderness to palpation present (GI) (lower abdomen) and Yes Guarding due to palpation present (GI) (LLQ) Objective Data Vital Signs Vital Signs: Vital Signs - 24 hr 08/06/22 16:01 08/06/22 22:00 08/06/22 20:20 Temperature 36.1 C L 37.3 C Pulse Rate 72 74 74 Respiratory Rate 16 16 16 Blood Pressure 113/53 L 123/56 L Pulse Oximetry 93 94 94 Oxygen Delivery Room Air 08/07/22 06:00 Temperature 37.3 C Pulse Rate 74 Respiratory Rate 18 Blood Pressure 111/56 L Pulse Oximetry 94 Oxygen Delivery Intake/Output Intake/Output: Intake & Output 08/04/22 08/05/22 08/06/22 08/07/22 23:59 23:59 23:59 23:59 Intake Total 1000 1000 1000 Output Total 2600 1150 Balance 1000 -1600 -150 Meds/Results Medications: Active Medications Generic Name Dose Route Start Last Admin Trade Name Freq PRN Reason Stop Dose Admin Dextrose 12.5 gm 08/07/22 11:22 Dextrose 50% 25 Gm/50 Ml Syringe IV PUSH PRN PRN Hypoglycemia Protocol Glucagon 1 mg 08/07/22 11:22 Glucagon For Inj 1 Mg Vial IM PRN PRN Hypoglycemia Protocol Glucose 15 gm 08/07/22 11:22 Glucose Oral Gel 15 Gm Of Glucse In 37.5 Gm Tube PO PRN PRN Hypoglycemia Protocol Hydromorphone HCl 0.5 mg 08/05/22 23:02 08/07/22 09:59 Hydromorphone Hcl Inj (*Crx) 1 Mg/Ml Syr IV PUSH 0.5 mg Q3H PRN Administration Pain Rated 7-10 Lactated Ringer's 1,000 mls @ 100 mls/hr 08/06/22 10:30 08/07/22 06:37 Lr - Lactated Ringers Iv IV CONT 100 mls/hr .Q10H MARIANA Administration Potassium Chloride 40 meq/ 520 mls @ 130 mls/hr 08/07/22 08:30 08/07/22 09:53 Sodium Chloride IVPB 08/07/22 12:29 130 mls/hr ONCE ONE Administration Dextrose 1,000 mls @ 100 mls/hr 08/07/22 11:22 Dextrose 5% 1,000 Ml IVPB PRN PRN Hypoglycemia Protocol Ondansetron HCl 4 mg 08/05/22 23:03 08/06/22 12:00 Ondansetron Inj 4 Mg/2 Ml Vial IV PUSH 4 mg Q4H PRN Administration Nausea And Vomiting Pantoprazole Sodium 40 mg 08/06/22 09:00 08/07/22 10:20 Pantoprazole Sodium Iv 40 Mg Vial IV PUSH 40 mg Q12HR MARIANA Administration Promethazine HCl 12.5 mg 08/06/22 12:13 08/06/22 14:36 Promethazine Hcl 25 Mg/Ml Ampul IV PUSH 12.5 mg Q4H PRN Administration Nausea And Vomiting Radiology Results: ITS Impressions Abdomen/Pelvis CT 08/05/22 18:23 IMPRESSION: Dilated jejunal segments up to 3.8 cm diameter, with air-fluid levels. Differential diagnosis is given above. Consider small bowel series for further evaluation as clinically appropriate 1.5 x 2.1 cm right adrenal mass Small renal cysts Normal appendix Hepatic steatosis Chest X-Ray 08/05/22 19:34 IMPRESSION: No active cardiopulmonary disease Upper GI and Small Bowel X-Ray 08/06/22 11:56 IMPRESSION: 1: Dilated proximal small bowel with transition in the distal jejunum. Distal small bowel is decompressed. Findings compatible with partial small bowel obstruction. Abdomen X-Ray 08/06/22 15:33 IMPRESSION: NG tube in
[2022-08-07 14:00] VITALS: BP 110/56; PULSE 67; RESP 18; TEMP 36.9; O2SAT 91
[2022-08-07] MEDS: polyethylene glycoL 3350 17 GM POWD.PACK FEED TUBE ×2 (17:01→17:02)
[2022-08-07 20:35] VITALS: PULSE 77; RESP 16; O2SAT 98
[2022-08-07 21:50] VITALS: BP 122/49; PULSE 77; RESP 16; TEMP 37.1; O2SAT 98
[2022-08-08 06:00] VITALS: BP 130/68; PULSE 76; RESP 20; TEMP 36.6; O2SAT 95
[2022-08-08] MEDS: PANTOPRAZOLE SODIUM IV 40 MG VIAL IV PUSH ×2 (09:11→21:15)
--- NOTE | 2022-08-08 11:01 | PM.IMPN ---
Progress Note: A&P Assessment and Plan (1) Thrombocytopenia: Code(s): D69.6 - Thrombocytopenia, unspecified Status: Acute Assessment and Plan: Improved, monitor (2) Small bowel obstruction: Code(s): K56.609 - Unspecified intestinal obstruction, unspecified as to partial versus complete obstruction Status: Acute Assessment and Plan: appreciate surgical input. Continue NG tube to low intermittent suction. X-ray noted. Advancing diet and NG tube management per surgery (3) Intractable nausea and vomiting: Code(s): R11.2 - Nausea with vomiting, unspecified Status: Acute (4) Diabetes: Code(s): E11.9 - Type 2 diabetes mellitus without complications Status: Acute Assessment and Plan: blood sugars look good. Subjective Date/time seen: 08/08/22 11:01 doing much better, NG tube in place. Patient wants to eat. Exam Narrative: Laying in a stretcher Const: General: comfortable, no acute distress, well developed, alert, awake and other ( well-appearing) Nutritional Appearance: average body habitus Orientation/consciousness: patient oriented x3 HENMT: Head: normal to inspection, normocephalic and atraumatic Ears: hearing grossly normal bilaterally Face and sinus: normal facial exam Eyes: General: appearance normal, both eyes and all related structures Pupils: Equal, round and reactive pupils present EOM: EOMs intact bilaterally Neck: Neck: full ROM, no lymphadenopathy and no JVD Thyroid: thyroid normal Lymphatic: no lymphadenopathy noted Resp: Effort & Inspection: normal respiratory effort and able to speak in complete sentences Auscultation: clear to auscultation bilaterally Cardio: Jugular venous distension: no JVD Rate: regular rate Rhythm: regular rhythm Heart sounds: S1 normal heart sound present and S2 normal heart sound present GI: Inspection: normal to inspection : General: Yes deferred Skin: Rashes: no rashes Wounds: no wounds Neuro: General: patient oriented x3 and CN's II-XI intact bilaterally Cranial nerves: Yes CN's II-XII intact bilaterally and Yes Equal, round and reactive pupils present Cognition (Neuro): normal cognition Speech: normal speech Gait exam (Neuro): Normal gait present Motor exam (neuro): 5/5 motor strength present throughout Sensory Exam: No Sensory deficit (Neuro) Extrem: General: normal to inspection, full ROM, no joint enlargement and no pedal edema Objective Data Vital Signs Vital Signs: Vital Signs - 24 hr 08/07/22 14:00 08/07/22 21:50 08/07/22 20:35 Temperature 98.5 F 98.7 F Pulse Rate 67 77 77 Respiratory Rate 18 16 16 Blood Pressure 110/56 L 122/49 L Pulse Oximetry 91 98 98 Oxygen Delivery Room Air 08/08/22 06:00 Temperature 97.9 F Pulse Rate 76 Respiratory Rate 20 Blood Pressure 130/68 Pulse Oximetry 95 Oxygen Delivery Intake/Output Intake/Output: Intake & Output 08/05/22 08/06/22 08/07/22 08/08/22 23:59 23:59 23:59 23:59 Intake Total 1000 1000 1000 0 Output Total 2600 2150 1 Balance 1000 -1600 -1150 -1 Meds/Results Medications: Active Medications Generic Name Dose Route Start Last Admin Trade Name Freq PRN Reason Stop Dose Admin Dextrose 12.5 gm 08/07/22 11:22 Dextrose 50% 25 Gm/50 Ml Syringe IV PUSH PRN PRN Hypoglycemia Protocol Glucagon 1 mg 08/07/22 11:22 Glucagon For Inj 1 Mg Vial IM PRN PRN Hypoglycemia Protocol Glucose 15 gm 08/07/22 11:22 Glucose Oral Gel 15 Gm Of Glucse In 37.5 Gm Tube PO PRN PRN Hypoglycemia Protocol Hydromorphone HCl 0.5 mg 08/05/22 23:02 08/07/22 20:06 Hydromorphone Hcl Inj (*Crx) 1 Mg/Ml Syr IV PUSH 0.5 mg Q3H PRN Administration Pain Rated 7-10 Lactated Ringer's 1,000 mls @ 100 mls/hr 08/06/22 10:30 08/07/22 06:37 Lr - Lactated Ringers Iv IV CONT 100 mls/hr .Q10H MARIANA Administration Dextrose 1,000 mls @ 100 mls/hr
[2022-08-08 11:27] LABS: Basophils Percent Auto 0.8 % (0.2-1.2); Eosinophils Absolute Auto 0.3 K/mm3 (0-0.3); Eosinophils Percent Auto 5.4 % (0-4.4); Hematocrit 30.2 % (37.0-47.0); Hemoglobin 10.2 g/dL (12.0-15.0); Immature Granulocyte Absolute 0.04 K/mm3 (0.00-0.031); Immature Granulocyte Percent A 0.8 % (0-0.5); Lymphocytes Absolute Auto 1.31 K/mm3 (0.9-3.2); Lymphocytes Percent Auto 26.3 % (18.3-44.2); Mean Corpuscular HGB Conc 33.8 g/dl (32-36); Mean Corpuscular Hemoglobin 30.5 pg (26-34); Mean Corpuscular Volume 90.4 fl (80-100); Mean Platelet Volume 11.5 fl (7.4-10.4); Monocytes Absolute Auto 0.7 K/mm3 (0.1-0.6); Monocytes Percent Auto 13.1 % (2.6-8.5); Neutrophils Absolute Auto 2.7 K/mm3 (1.3-6.7); Neutrophils Percent Auto 53.6 % (45.5-73.1); Nucleated Red Blood Cells Perc 0.4 % (0.0-0.2); Platelet Count Result 145 k/mm3 (150-375); Red Blood Count 3.34 M/mm3 (4.2-5.4); Red Cell Distribution Width 13.2 % (11.5-14.5)
[2022-08-08 11:28] LABS: Potassium 3.5 mmol/L (3.4-5.0)
[2022-08-08 11:32] LABS: Anion Gap 13 mmol/L (8-16); Blood Urea Nitrogen 11 mg/dL (7-17); Calcium 7.4 mg/dL (8.4-10.2); Carbon Dioxide 25 mmol/L (22-30); Chloride 101 mmol/L (98-107); Estimated CRCL calculation 63 ml/min; Estimated Glomerular Filt Rate > 60; Glucose 79 mg/dL (65-110); Potassium 3.5 mmol/L (3.4-5.0); Sodium 139 mmol/L (137-145)
[2022-08-08] MEDS: HYDROmorphone HCL INJ (*CRX) 1 MG/ML SYR 0.5 MG IV PUSH ×2 (11:52→17:49)
[2022-08-08 12:22] LABS: Glucose Point of Care 78 mg/dl (65-105)
--- NOTE | 2022-08-08 13:49 | PM.PNGS ---
Progress Note: A&P Assessment and Plan (1) Small bowel obstruction: Code(s): K56.609 - Unspecified intestinal obstruction, unspecified as to partial versus complete obstruction Status: Acute Assessment and Plan: Still having abdominal pain today. Plain films show a normal bowel gas pattern from yesterday and this morning, oral contrast noted in the colon. NG tube output is minimal. Will try stimulating her bowels again today. Keep the NG tube in place and NPO. Encouraged ambulating in the halls. Repeat obstructive series tomorrow morning. (2) Thrombocytopenia: Code(s): D69.6 - Thrombocytopenia, unspecified Status: Acute (3) Hypothyroidism: Code(s): E03.9 - Hypothyroidism, unspecified Status: Acute Plan I have discussed the patient's case and plan of care with Dr. Palencia. Subjective Subjective Date/Time Seen: 08/08/22 11:59 Patient reports: still having pain, flatus (yesterday, not much today) and bowel movement (x2 yesterday, no BM yet today) Interval history: Patient seen with her daughter and the nurse at the bedside. Her daughter was able to translate for the patient with her permission since the patient is [place]ian-speaking. The patient was doing well earlier this morning and not having any abdominal pain. About 1-2 hours ago, she began having abdominal pain again that she reports is in the center of the abdomen. She had 2 BMs yesterday but not passing much gas today and no bowel movements yet today. No nausea. Still feels slightly bloated. No other complaints at this time. Review of Systems Review of Systems: All systems reviewed & are unremarkable except as noted in HPI and below Integumentary/Breasts: Comments: Also they reported the patient was bit by their kitten on her left hand the day she was admitted, and there is a few small dark spots on her index finger where the bite barrera are located, no redness or drainage Exam Const: General: comfortable and no acute distress Orientation/consciousness: patient oriented x3 GI: Inspection: non-distended GI Palp: Yes Soft to palpation, Yes Tenderness to palpation present (GI) (LLQ, RLQ), No Guarding due to palpation present (GI), Yes No hepatosplenomegaly present and No Rebound tenderness present Auscultation: Hypoactive bowel sounds present Skin: Other: 3 very small pinpoint areas on her left index finger from the cat bite that almost have the appearance of tiny blood-filled blisters, no surrounding erythema or swelling, skin appears intact Extrem: General: normal to inspection, no calf tenderness and no edema Psych: Mental Status: mental status grossly normal Insight: Good insight present (Psych) Objective Data Vital Signs Vital Signs: Vital Signs - 24 hr 08/07/22 14:00 08/07/22 21:50 08/07/22 20:35 Temperature 98.5 F 98.7 F Pulse Rate 67 77 77 Respiratory Rate 18 16 16 Blood Pressure 110/56 L 122/49 L Pulse Oximetry 91 98 98 Oxygen Delivery Room Air 08/08/22 06:00 Temperature 97.9 F Pulse Rate 76 Respiratory Rate 20 Blood Pressure 130/68 Pulse Oximetry 95 Oxygen Delivery Intake/Output Intake/Output: Intake & Output 08/05/22 08/06/22 08/07/22 08/08/22 23:59 23:59 23:59 23:59 Intake Total 1000 1000 1000 0 Output Total 2600 2150 1 Balance 1000 -1600 -1150 -1 Meds/Results Medications: Active Medications Generic Name Dose Route Start Last Admin Trade Name Freq PRN Reason Stop Dose Admin Dextrose 12.5 gm 08/07/22 11:22 Dextrose 50% 25 Gm/50 Ml Syringe IV PUSH PRN PRN Hypoglycemia Protocol Glucagon 1 mg 08/07/22 11:22 Glucagon For Inj 1 Mg Vial IM PRN PRN Hypoglycemia Protocol Glucose 15 gm 08/07/22 11:22 Glucose Oral Gel 15 Gm Of Glucse In 37.5 Gm Tube PO PRN PRN Hypoglycemia Protocol Hydromorphone HCl 0.5 mg 08/05/22 23:02 08/08/22 11:52 Hydromorphone Hcl Inj (*Crx) 1 Mg/Ml Syr IV PUSH 0.5 mg Q3H AK
[2022-08-08 14:00] VITALS: BP 130/59; PULSE 69; RESP 20; TEMP 36.7; O2SAT 100
[2022-08-08] MEDS: LACTATED RINGERS 1,000 ML 100 ML IV CONT (14:56)
[2022-08-08] MEDS: TETANUS/DIPHTHERIA TOXOIDS ADSORB 0.5 ML VIAL (*BKC) IM (14:57)
[2022-08-08] MEDS: BISACODYL 10 MG SUPPOSITORY RECTAL (14:59)
[2022-08-08 18:05] LABS: Glucose Point of Care 72 mg/dl (65-105)
[2022-08-08 22:00] VITALS: BP 140/67; PULSE 77; RESP 20; TEMP 37; O2SAT 99
[2022-08-08 23:50] LABS: Glucose Point of Care 75 mg/dl (65-105)
[2022-08-09] MEDS: LACTATED RINGERS 1,000 ML 100 ML IV CONT (03:53)
--- NOTE | 2022-08-09 05:11 | PC.NURSE ---
Pt is non nicaraguan speaking woman with family at bedside. Pt has stretching machine operator in room if needed. Pts son helped to get general information across. Pt very grateful to be getting treatment. Pt family asking about when the tube would be pulled. Family was instructed that it would be a process and that when provider felt the time was appropriate to remove, staff would remove it. Pt resting comfortably. Will continue to monitor.
[2022-08-09 05:47] VITALS: BP 132/60; PULSE 60; RESP 18; TEMP 35.9; O2SAT 94
[2022-08-09 05:47] LABS: Glucose Point of Care 68 mg/dl (65-105)
[2022-08-09] MEDS: DEXTROSE 50% 25 GM/50 ML SYRINGE IV PUSH (05:55)
[2022-08-09 06:50] LABS: Glucose Point of Care 130 mg/dl (65-105)
[2022-08-09 08:10] LABS: Anion Gap 10 mmol/L (8-16); Blood Urea Nitrogen 9 mg/dL (7-17); Calcium 7.4 mg/dL (8.4-10.2); Carbon Dioxide 24 mmol/L (22-30); Chloride 102 mmol/L (98-107); Estimated CRCL calculation 73 ml/min; Estimated Glomerular Filt Rate > 60; Glucose 106 mg/dL (65-110); Potassium 3.3 mmol/L (3.4-5.0); Sodium 136 mmol/L (137-145)
[2022-08-09 08:26] LABS: Basophils Absolute Auto 0.1 K/mm3 (0.0-0.1); Basophils Percent Auto 1.2 % (0.2-1.2); Eosinophils Absolute Auto 0.4 K/mm3 (0-0.3); Eosinophils Percent Auto 7.4 % (0-4.4); Hematocrit 30.5 % (37.0-47.0); Hemoglobin 10.3 g/dL (12.0-15.0); Immature Granulocyte Absolute 0.16 K/mm3 (0.00-0.031); Immature Granulocyte Percent A 3.1 % (0-0.5); Lymphocytes Absolute Auto 1.22 K/mm3 (0.9-3.2); Lymphocytes Percent Auto 23.7 % (18.3-44.2); Mean Corpuscular HGB Conc 33.8 g/dl (32-36); Mean Corpuscular Hemoglobin 30.8 pg (26-34); Mean Corpuscular Volume 91.3 fl (80-100); Mean Platelet Volume 11.2 fl (7.4-10.4); Monocytes Absolute Auto 0.6 K/mm3 (0.1-0.6); Monocytes Percent Auto 11.5 % (2.6-8.5); Neutrophils Absolute Auto 2.7 K/mm3 (1.3-6.7); Neutrophils Percent Auto 53.1 % (45.5-73.1); Nucleated Red Blood Cells Perc 0.4 % (0.0-0.2); Platelet Count Result 208 k/mm3 (150-375); Red Blood Count 3.34 M/mm3 (4.2-5.4); Red Cell Distribution Width 12.8 % (11.5-14.5); White Blood Count 5.2 K/mm3 (4.5-10.0)
[2022-08-09] MEDS: PANTOPRAZOLE SODIUM IV 40 MG VIAL IV PUSH ×2 (08:42→20:41)
[2022-08-09] MEDS: HYDROmorphone HCL INJ (*CRX) 1 MG/ML SYR 0.5 MG IV PUSH (08:42)
[2022-08-09] MEDS: ACETAMINOPHEN 325 MG TABLET 650 MG PO (11:09)
[2022-08-09 11:57] LABS: Glucose Point of Care 82 mg/dl (65-105)
--- NOTE | 2022-08-09 13:38 | PM.IMPN ---
Progress Note: A&P Assessment and Plan (1) Small bowel obstruction: Code(s): K56.609 - Unspecified intestinal obstruction, unspecified as to partial versus complete obstruction Status: Acute Assessment and Plan: KUB shows normal bowel gas pattern today. NG tube was removed. She was started on clear liquid diets which she is tolerating well. Encouraged her to be up walking the halls. Advance diet per General surgery. Resume some home medications. (2) Thrombocytopenia: Code(s): D69.6 - Thrombocytopenia, unspecified Status: Acute Assessment and Plan: patient's platelet count was 60 K on admission but has increased every day and is now back to normal. Etiology unclear but consider viral infection which may have been the etiology of her small-bowel obstruction. We will check B12 level. Continue to monitor. (3) Intractable nausea and vomiting: Code(s): R11.2 - Nausea with vomiting, unspecified Status: Acute Assessment and Plan: Patient with intractable nausea and vomiting felt to be related to the small-bowel obstruction. Consider also viral gastroenteritis. Symptoms appear to have resolved. She is tolerating the clear liquid diet. Advance diet as she tolerates. (4) Diabetes: Code(s): E11.9 - Type 2 diabetes mellitus without complications Status: Acute Assessment and Plan: Patient states that she does not have diabetes although is on metformin on admission. Glucose appears to be well controlled. Will check A1c. Subjective Date/time seen: 08/09/22 13:38 Interval history: 62yo female with DM and HTN here for abdominal pain and found to have SBO. Assuming care. Chart reviewed. Patient is Japanese-speaking only but family in the room to translate. Patient has not been walking today. She did have a bowel movement yesterday but not today. She is passing flatus however. She denies any abdominal pain. She is tolerating clear liquids without nausea or vomiting. Exam Narrative: AF 96.6 132/62 60 18 94% ra Gen - NARD Chest - CTA bilaterally, nml RR CV - RRR S1/S2 Abd - Soft, NT/ND, Positive BS Ext - No pedal edema Psych - Nml mood and affect Skin - Warm and dry Objective Data Vital Signs Vital Signs: Vital Signs - 24 hr 08/08/22 14:00 08/08/22 20:45 08/08/22 21:19 Temperature 98.0 F Pulse Rate 69 Respiratory Rate 20 Blood Pressure 130/59 L Pulse Oximetry 100 Oxygen Delivery Room Air Room Air 08/08/22 22:00 08/09/22 05:47 08/09/22 08:00 Temperature 98.6 F 96.6 F L Pulse Rate 77 60 Respiratory Rate 20 18 Blood Pressure 140/67 132/60 Pulse Oximetry 99 94 Oxygen Delivery Room Air Intake/Output Intake/Output: Intake & Output 08/06/22 08/07/22 08/08/22 08/09/22 23:59 23:59 23:59 23:59 Intake Total 1000 2000 0 1300 Output Total 2600 2150 151 150 Balance -1600 -150 -151 1150 Meds/Results Medications: Active Medications Generic Name Dose Route Start Last Admin Trade Name Freq PRN Reason Stop Dose Admin Dextrose 12.5 gm 08/07/22 11:22 08/09/22 05:55 Dextrose 50% 25 Gm/50 Ml Syringe IV PUSH 12.5 gm PRN PRN Administration Hypoglycemia Protocol Glucagon 1 mg 08/07/22 11:22 Glucagon For Inj 1 Mg Vial IM PRN PRN Hypoglycemia Protocol Glucose 15 gm 08/07/22 11:22 Glucose Oral Gel 15 Gm Of Glucse In 37.5 Gm Tube PO PRN PRN Hypoglycemia Protocol Hydromorphone HCl 0.5 mg 08/05/22 23:02 08/09/22 08:42 Hydromorphone Hcl Inj (*Crx) 1 Mg/Ml Syr IV PUSH 0.5 mg Q3H PRN Administration Pain Rated 7-10 Lactated Ringer's 1,000 mls @ 100 mls/hr 08/06/22 10:30 08/09/22 03:53 Lr - Lactated Ringers Iv IV CONT 100 mls/hr .Q10H MARIANA Administration Dextrose 1,000 mls @ 100 mls/hr 08/07/22 11:22 Dextrose 5% 1,000 Ml IVPB PRN PRN Hypoglycemia Protocol Ondansetron HCl 4 mg
[2022-08-09 14:00] VITALS: BP 124/59; PULSE 53; RESP 18; TEMP 36.3; O2SAT 100
--- NOTE | 2022-08-09 14:11 | PM.PNGS ---
Progress Note: A&P Assessment and Plan (1) Small bowel obstruction: Code(s): K56.609 - Unspecified intestinal obstruction, unspecified as to partial versus complete obstruction Status: Acute Assessment and Plan: Clinically improving. Has had multiple bowel movements since yesterday. No abdominal pain or tenderness today. Obstructive series looks better today and appears more contrast has moved through. Will remove NG tube and start clear liquids. (2) Thrombocytopenia: Code(s): D69.6 - Thrombocytopenia, unspecified Status: Acute (3) Hypothyroidism: Code(s): E03.9 - Hypothyroidism, unspecified Status: Acute Plan I have discussed the patient's case and plan of care with Dr. Palencia. Subjective Subjective Date/Time Seen: 08/09/22 10:11 Patient reports: no new complaints, feels better, flatus and bowel movement (x5 since yesterday) Interval history: Patient seen and examined with her daughter at the bedside, who is able to translate with the patient's permission. The patient is primarily Greek speaking. She denies any abdominal pain today. She has had 5 bowel movements since yesterday afternoon. She is eager to try liquids. Her NG tube has already been removed this morning. No nausea, vomiting, or bloating. Review of Systems Review of Systems: All systems reviewed & are unremarkable except as noted in HPI and below Exam Const: General: alert; No acute distress Orientation/consciousness: patient oriented x3 GI: Inspection: non-distended GI Palp: Yes Soft to palpation, No Tenderness to palpation present (GI), No Guarding due to palpation present (GI) and No Rebound tenderness present Auscultation: normal bowel sounds Extrem: General: normal to inspection and no edema Psych: Mental Status: mental status grossly normal Insight: Good insight present (Psych) Objective Data Vital Signs Vital Signs: Vital Signs - 24 hr 08/08/22 20:45 08/08/22 21:19 08/08/22 22:00 Temperature 98.6 F Pulse Rate 77 Respiratory Rate 20 Blood Pressure 140/67 Pulse Oximetry 99 Oxygen Delivery Room Air Room Air 08/09/22 05:47 08/09/22 08:00 Temperature 96.6 F L Pulse Rate 60 Respiratory Rate 18 Blood Pressure 132/60 Pulse Oximetry 94 Oxygen Delivery Room Air Intake/Output Intake/Output: Intake & Output 09/08/07/22 08/08/22 08/09/22 23:59 23:59 23:59 23:59 Intake Total 1000 2000 0 1300 Output Total 2600 2150 151 150 Balance -1600 -150 -151 1150 Meds/Results Medications: Active Medications Generic Name Dose Route Start Last Admin Trade Name Freq PRN Reason Stop Dose Admin Acetaminophen 650 mg 08/09/22 13:48 Acetaminophen 325 Mg Tablet PO Q6H PRN Mild Pain (1-3) or Fever Dextrose 12.5 gm 08/07/22 11:22 08/09/22 05:55 Dextrose 50% 25 Gm/50 Ml Syringe IV PUSH 12.5 gm PRN PRN Administration Hypoglycemia Protocol Glucagon 1 mg 08/07/22 11:22 Glucagon For Inj 1 Mg Vial IM PRN PRN Hypoglycemia Protocol Glucose 15 gm 08/07/22 11:22 Glucose Oral Gel 15 Gm Of Glucse In 37.5 Gm Tube PO PRN PRN Hypoglycemia Protocol Hydromorphone HCl 0.5 mg 08/05/22 23:02 08/09/22 08:42 Hydromorphone Hcl Inj (*Crx) 1 Mg/Ml Syr IV PUSH 0.5 mg Q3H PRN Administration Pain Rated 7-10 Lactated Ringer's 1,000 mls @ 50 mls/hr 08/06/22 10:30 08/09/22 13:56 Lr - Lactated Ringers Iv IV CONT 50 mls/hr .Q20H MARIANA Infusion Dextrose 1,000 mls @ 100 mls/hr 08/07/22 11:22 Dextrose 5% 1,000 Ml IVPB PRN PRN Hypoglycemia Protocol Levothyroxine Sodium 125 mcg 08/09/22 14:00 Levothyroxine Sodium 125 Mcg Tablet PO DAILY@0630 MARIANA Metoprolol Succinate 25 mg 08/10/22 09:00 Metoprolol Succinate Ext Rel 25 Mg Tabcr PO DAILY MARIANA Ondansetron HCl 4 mg 08/05/22 23:03 08/06/22 12:00 Ondansetron Inj 4 Mg/2 Ml Vial IV PUSH 4 mg Q4H
[2022-08-09] MEDS: POTASSIUM CHLORIDE 20 MEQ TABLET PO (15:12)
[2022-08-09] MEDS: LEVOTHYROXINE SODIUM 125 MCG TABLET PO (15:12)
[2022-08-09 17:57] LABS: Glucose Point of Care 134 mg/dl (65-105)
[2022-08-09 22:00] VITALS: BP 144/61; PULSE 61; RESP 14; TEMP 36.1; O2SAT 97
[2022-08-09] MEDS: LACTATED RINGERS 1,000 ML 50 ML IV CONT (22:13)
[2022-08-10 05:29] VITALS: BP 129/60; PULSE 56; RESP 14; TEMP 36.3; O2SAT 100
[2022-08-10] MEDS: LEVOTHYROXINE SODIUM 125 MCG TABLET PO (06:02)
[2022-08-10 06:08] LABS: Basophils Absolute Auto 0.1 K/mm3 (0.0-0.1); Eosinophils Absolute Auto 0.3 K/mm3 (0-0.3); Eosinophils Percent Auto 5.6 % (0-4.4); Hematocrit 30.9 % (37.0-47.0); Hemoglobin 10.7 g/dL (12.0-15.0); Immature Granulocyte Percent A 5.8 % (0-0.5); Lymphocytes Absolute Auto 1.74 K/mm3 (0.9-3.2); Mean Corpuscular HGB Conc 34.6 g/dl (32-36); Mean Corpuscular Volume 89.6 fl (80-100); Mean Platelet Volume 10.6 fl (7.4-10.4); Monocytes Absolute Auto 0.6 K/mm3 (0.1-0.6); Monocytes Percent Auto 10.6 % (2.6-8.5); Neutrophils Absolute Auto 2.3 K/mm3 (1.3-6.7); Neutrophils Percent Auto 43.5 % (45.5-73.1); Nucleated Red Blood Cells Perc 0.6 % (0.0-0.2); Platelet Count Result 276 k/mm3 (150-375); Red Blood Count 3.45 M/mm3 (4.2-5.4); Red Cell Distribution Width 12.9 % (11.5-14.5); White Blood Count 5.2 K/mm3 (4.5-10.0)
[2022-08-10 06:50] LABS: Hemoglobin A1C 5.4 % (<5.7)
[2022-08-10 06:53] LABS: Alanine Aminotransferase 21 U/L (6-35); Albumin Level 2.8 g/dL (3.5-5.1); Alkaline Phosphatase 63 U/L (38-126); Anion Gap 5 mmol/L (8-16); Aspartate Amino Transferase 25 U/L (14-36); Bilirubin,Total 0.3 mg/dL (0.2-1.3); Blood Urea Nitrogen 5 mg/dL (7-17); Calcium 7.9 mg/dL (8.4-10.2); Carbon Dioxide 28 mmol/L (22-30); Chloride 104 mmol/L (98-107); Estimated CRCL calculation 63 ml/min; Estimated Glomerular Filt Rate > 60; Glucose 93 mg/dL (65-110); Potassium 3.6 mmol/L (3.4-5.0); Sodium 137 mmol/L (137-145)
[2022-08-10 06:54] LABS: Lymphocytes Percent Auto 33.5 % (18.3-44.2)
[2022-08-10 07:04] LABS: Hepatitis B Surface Antigen Negative (Negative)
[2022-08-10 07:10] LABS: HAV RESULT Negative (Negative); Hepatitis B Core IgM Result Negative (Negative)
[2022-08-10 07:21] LABS: Hepatitis C Virus Antibody Negative (Negative)
[2022-08-10 07:51] LABS: Folic Acid 15.7 ng/mL (2.76->20)
[2022-08-10 08:31] VITALS: PULSE 63
[2022-08-10] MEDS: ENOXAPARIN 40 MG/0.4 ML SYRINGE SUB-Q (08:31)
[2022-08-10] MEDS: METOPROLOL SUCCINATE EXT REL 25 MG TABCR PO (08:31)
[2022-08-10] MEDS: PANTOPRAZOLE SODIUM IV 40 MG VIAL IV PUSH (08:31)
--- NOTE | 2022-08-10 11:22 | PM.PNGS ---
Progress Note: A&P Assessment and Plan (1) Small bowel obstruction: Code(s): K56.609 - Unspecified intestinal obstruction, unspecified as to partial versus complete obstruction Status: Acute Assessment and Plan: Continues to improve. Bowels are moving. Okay to advance diet as tolerated to low fiber. She can be discharged from our standpoint once tolerating a solid diet. No follow-up with surgery needed. (2) Thrombocytopenia: Code(s): D69.6 - Thrombocytopenia, unspecified Status: Acute (3) Hypothyroidism: Code(s): E03.9 - Hypothyroidism, unspecified Status: Acute Plan I have discussed the patient's case and plan of care with Dr. Ball. Subjective Subjective Date/Time Seen: 08/10/22 11:22 Patient reports: no new complaints, tolerating liquids well, flatus and bowel movement Interval history: Patient seen and examined with her daughter at the bedside who is able to translate with the patient's permission. She reports having numerous BMs yesterday and continues to feel better. She denies any abdominal pain, nausea, vomiting, or bloating. Review of Systems Review of Systems: All systems reviewed & are unremarkable except as noted in HPI and below Exam Const: General: alert; No acute distress Orientation/consciousness: patient oriented x3 GI: Inspection: non-distended GI Palp: Yes Soft to palpation, No Tenderness to palpation present (GI), No Guarding due to palpation present (GI) and No Rebound tenderness present Auscultation: normal bowel sounds Psych: Mental Status: mental status grossly normal Insight: Good insight present (Psych) Objective Data Vital Signs Vital Signs: Vital Signs - 24 hr 08/09/22 14:00 08/09/22 22:00 08/10/22 05:29 Temperature 97.4 F L 97.0 F L 97.4 F L Pulse Rate 53 L 61 56 L Respiratory Rate 18 14 14 Blood Pressure 124/59 L 144/61 H 129/60 Pulse Oximetry 100 97 100 Oxygen Delivery 08/10/22 07:52 08/10/22 08:31 Temperature Pulse Rate 63 Respiratory Rate Blood Pressure Pulse Oximetry Oxygen Delivery Room Air Intake/Output Intake/Output: Intake & Output 08/07/22 08/08/22 08/09/22 08/10/22 23:59 23:59 23:59 23:59 Intake Total 2000 0 2860 1110 Output Total 2150 151 150 Balance -150 -151 2710 1110 Meds/Results Medications: Active Medications Generic Name Dose Route Start Last Admin Trade Name Indraq PRN Reason Stop Dose Admin Acetaminophen 650 mg 08/09/22 13:48 Acetaminophen 325 Mg Tablet PO Q6H PRN Mild Pain (1-3) or Fever Dextrose 12.5 gm 08/07/22 11:22 08/09/22 05:55 Dextrose 50% 25 Gm/50 Ml Syringe IV PUSH 12.5 gm PRN PRN Administration Hypoglycemia Protocol Enoxaparin Sodium 40 mg 08/10/22 09:00 08/10/22 08:31 Enoxaparin 40 Mg/0.4 Ml Syringe SUB-Q 40 mg DAILY MARIANA Administration Glucagon 1 mg 08/07/22 11:22 Glucagon For Inj 1 Mg Vial IM PRN PRN Hypoglycemia Protocol Glucose 15 gm 08/07/22 11:22 Glucose Oral Gel 15 Gm Of Glucse In 37.5 Gm Tube PO PRN PRN Hypoglycemia Protocol Hydromorphone HCl 0.5 mg 08/05/22 23:02 08/09/22 08:42 Hydromorphone Hcl Inj (*Crx) 1 Mg/Ml Syr IV PUSH 0.5 mg Q3H PRN Administration Pain Rated 7-10 Dextrose 1,000 mls @ 100 mls/hr 08/07/22 11:22 Dextrose 5% 1,000 Ml IVPB PRN PRN Hypoglycemia Protocol Levothyroxine Sodium 125 mcg 08/09/22 14:00 08/10/22 06:02 Levothyroxine Sodium 125 Mcg Tablet PO 125 mcg DAILY@0630 MARIANA Administration Metoprolol Succinate 25 mg 08/10/22 09:00 08/10/22 08:31 Metoprolol Succinate Ext Rel 25 Mg Tabcr PO 25 mg DAILY MARIANA Administration Ondansetron HCl 4 mg 08/05/22 23:03 08/06/22 12:00 Ondansetron Inj 4 Mg/2 Ml Vial IV PUSH 4 mg Q4H PRN Administration Nausea And Vomiting Pantoprazole Sodium 40 mg 08/06/22 09:00 08/10/22 08:31 Pantoprazole Sodium Iv 40 Mg Vial IV PUSH 40
[2022-08-10 14:00] VITALS: BP 128/72; PULSE 51; RESP 12; TEMP 36.2; O2SAT 98
--- NOTE | 2022-08-10 17:23 | PM.IMPN ---
Progress Note: A&P Assessment and Plan (1) Small bowel obstruction: Code(s): K56.609 - Unspecified intestinal obstruction, unspecified as to partial versus complete obstruction Status: Acute Assessment and Plan: KUB shows normal bowel gas pattern yesterday. NG tube was removed 08/09. She was started on clear liquid diets which she is tolerating well but more symptoms with the full liquids. Encouraged her to be up walking the halls. Could be related to resuming oral intake. Advance diet to low fiber. Hold on repeat imaging given exam relatively benign. If she does well with diet advance then home. (2) Thrombocytopenia: Code(s): D69.6 - Thrombocytopenia, unspecified Status: Acute Assessment and Plan: Patient's platelet count was 60K on admission but has increased every day and is now back to normal. B12 normal. Etiology unclear but consider viral infection which may have been the etiology of her small-bowel obstruction. Resolved (3) Intractable nausea and vomiting: Code(s): R11.2 - Nausea with vomiting, unspecified Status: Acute Assessment and Plan: Patient with intractable nausea and vomiting felt to be related to the small-bowel obstruction. Consider also viral gastroenteritis. Symptoms appear to have resolved. She tolerated the clear liquid diet but not as well with full liquids. Continue to advance diet (4) Diabetes: Code(s): E11.9 - Type 2 diabetes mellitus without complications Status: Acute Assessment and Plan: Patient has pre-DM. A1c 5.4 here. She is on metformin. Glucose remains well controlled. Subjective Date/time seen: 08/10/22 17:23 Interval history: 62yo female with DM and HTN here for abdominal pain and found to have SBO. Patient is Uzbek-speaking only but family in the room to translate. Patient advanced to full liquids but feels bloated and no flatus or BM today. No CP or SOB. Has been walking in the room. Exam Narrative: AF 97.1 128/72 51 12 98% ra Gen - NARD Chest - CTA bilaterally, nml RR CV - RRR S1/S2 Abd - Soft, NT/ND, Positive BS Ext - No pedal edema Psych - Nml mood and affect Skin - Warm and dry Objective Data Vital Signs Vital Signs: Vital Signs - 24 hr 08/09/22 22:00 08/10/22 05:29 08/10/22 07:52 Temperature 97.0 F L 97.4 F L Pulse Rate 61 56 L Respiratory Rate 14 14 Blood Pressure 144/61 H 129/60 Pulse Oximetry 97 100 Oxygen Delivery Room Air 08/10/22 08:31 08/10/22 14:00 Temperature 97.1 F L Pulse Rate 63 51 L Respiratory Rate 12 Blood Pressure 128/72 Pulse Oximetry 98 Oxygen Delivery Intake/Output Intake/Output: Intake & Output 08/07/22 08/08/22 08/09/22 08/10/22 23:59 23:59 23:59 23:59 Intake Total 2000 0 2860 1350 Output Total 2150 151 150 Balance -150 -151 2710 1350 Meds/Results Medications: Active Medications Generic Name Dose Route Start Last Admin Trade Name Freq PRN Reason Stop Dose Admin Acetaminophen 650 mg 08/09/22 13:48 Acetaminophen 325 Mg Tablet PO Q6H PRN Mild Pain (1-3) or Fever Dextrose 12.5 gm 08/07/22 11:22 08/09/22 05:55 Dextrose 50% 25 Gm/50 Ml Syringe IV PUSH 12.5 gm PRN PRN Administration Hypoglycemia Protocol Enoxaparin Sodium 40 mg 08/10/22 09:00 08/10/22 08:31 Enoxaparin 40 Mg/0.4 Ml Syringe SUB-Q 40 mg DAILY MARIANA Administration Glucagon 1 mg 08/07/22 11:22 Glucagon For Inj 1 Mg Vial IM PRN PRN Hypoglycemia Protocol Glucose 15 gm 08/07/22 11:22 Glucose Oral Gel 15 Gm Of Glucse In 37.5 Gm Tube PO PRN PRN Hypoglycemia Protocol Hydromorphone HCl 0.5 mg 08/05/22 23:02 08/09/22 08:42 Hydromorphone Hcl Inj (*Crx) 1 Mg/Ml Syr IV PUSH 0.5 mg Q3H PRN Administration Pain Rated 7-10 Dextrose 1,000 mls @ 100 mls/hr 08/07/22 11:22 Dextrose 5% 1,000 Ml IVPB PRN PRN Hypoglycemia Protocol
[2022-08-10 21:48] VITALS: BP 112/55; PULSE 56; RESP 14; TEMP 36.2; O2SAT 90
[2022-08-11 05:57] VITALS: BP 116/57; PULSE 56; RESP 14; TEMP 36.8; O2SAT 94
[2022-08-11] MEDS: LEVOTHYROXINE SODIUM 125 MCG TABLET PO (06:32)
[2022-08-11 08:30] VITALS: PULSE 76
[2022-08-11] MEDS: METOPROLOL SUCCINATE EXT REL 25 MG TABCR PO (08:30)
[2022-08-11] MEDS: PANTOPRAZOLE 40 MG TABLET PO (08:30)
[2022-08-11] MEDS: ENOXAPARIN 40 MG/0.4 ML SYRINGE SUB-Q (08:31)
--- NOTE | 2022-08-11 11:14 | PM.PNGS ---
Progress Note: A&P Assessment and Plan (1) Small bowel obstruction: Code(s): K56.609 - Unspecified intestinal obstruction, unspecified as to partial versus complete obstruction Status: Acute Assessment and Plan: resolved, benji diet, +bowel fxn, ok to dc home from surgical standpoint Subjective Subjective Date/Time Seen: 08/11/22 11:14 feels good, benji diet, +bowel fxn Review of Systems Review of Systems: All systems reviewed & are unremarkable except as noted in HPI and below Exam Const: General: cooperative, comfortable and no acute distress Resp: Auscultation: clear to auscultation bilaterally Cardio: Rate: regular rate Rhythm: regular rhythm GI: Inspection: normal to inspection and non-distended GI Palp: No abdominal tenderness, Yes Soft to palpation, No Tenderness to palpation present (GI), No Guarding due to palpation present (GI) and No Rigid due to palpation Objective Data Vital Signs Vital Signs: Vital Signs - 24 hr 08/10/22 14:00 08/10/22 21:48 08/11/22 05:57 Temperature 36.2 C L 36.2 C L 36.8 C Pulse Rate 51 L 56 L 56 L Respiratory Rate 12 14 14 Blood Pressure 128/72 112/55 L 116/57 L Pulse Oximetry 98 90 94 Oxygen Delivery 08/11/22 08:30 08/11/22 08:00 Temperature Pulse Rate 76 Respiratory Rate Blood Pressure Pulse Oximetry Oxygen Delivery Room Air Intake/Output Intake/Output: Intake & Output 08/08/22 08/09/22 08/10/22 08/11/22 23:59 23:59 23:59 23:59 Intake Total 0 2860 2090 750 Output Total 151 150 Balance -151 2710 2090 750 Meds/Results Medications: Active Medications Generic Name Dose Route Start Last Admin Trade Name Freq PRN Reason Stop Dose Admin Acetaminophen 650 mg 08/09/22 13:48 Acetaminophen 325 Mg Tablet PO Q6H PRN Mild Pain (1-3) or Fever Dextrose 12.5 gm 08/07/22 11:22 08/09/22 05:55 Dextrose 50% 25 Gm/50 Ml Syringe IV PUSH 12.5 gm PRN PRN Administration Hypoglycemia Protocol Enoxaparin Sodium 40 mg 08/10/22 09:00 08/11/22 08:31 Enoxaparin 40 Mg/0.4 Ml Syringe SUB-Q 40 mg DAILY MARIANA Administration Glucagon 1 mg 08/07/22 11:22 Glucagon For Inj 1 Mg Vial IM PRN PRN Hypoglycemia Protocol Glucose 15 gm 08/07/22 11:22 Glucose Oral Gel 15 Gm Of Glucse In 37.5 Gm Tube PO PRN PRN Hypoglycemia Protocol Hydromorphone HCl 0.5 mg 08/05/22 23:02 08/09/22 08:42 Hydromorphone Hcl Inj (*Crx) 1 Mg/Ml Syr IV PUSH 0.5 mg Q3H PRN Administration Pain Rated 7-10 Dextrose 1,000 mls @ 100 mls/hr 08/07/22 11:22 Dextrose 5% 1,000 Ml IVPB PRN PRN Hypoglycemia Protocol Levothyroxine Sodium 125 mcg 08/09/22 14:00 08/11/22 06:32 Levothyroxine Sodium 125 Mcg Tablet PO 125 mcg DAILY@0630 MARIANA Administration Metoprolol Succinate 25 mg 08/10/22 09:00 08/11/22 08:30 Metoprolol Succinate Ext Rel 25 Mg Tabcr PO 25 mg DAILY MARIANA Administration Ondansetron HCl 4 mg 08/05/22 23:03 08/06/22 12:00 Ondansetron Inj 4 Mg/2 Ml Vial IV PUSH 4 mg Q4H PRN Administration Nausea And Vomiting Pantoprazole Sodium 40 mg 08/11/22 09:00 08/11/22 08:30 Pantoprazole 40 Mg Tablet PO 40 mg QAM MARIANA Administration Promethazine HCl 12.5 mg 08/06/22 12:13 08/06/22 14:36 Promethazine Hcl 25 Mg/Ml Ampul IV PUSH 12.5 mg Q4H PRN Administration Nausea And Vomiting Radiology Results: ITS Impressions Abdomen/Pelvis CT 08/05/22 18:23 IMPRESSION: Dilated jejunal segments up to 3.8 cm diameter, with air-fluid levels. Differential diagnosis is given above. Consider small bowel series for further evaluation as clinically appropriate 1.5 x 2.1 cm right adrenal mass Small renal cysts Normal appendix Hepatic steatosis Chest X-Ray 08/05/22 19:34 IMPRESSION: No active cardiopulmonary disease Upper GI and Small Bowel X-Ray 08/06/22 11:56 IMPRESSION: 1: Dilated proximal
[2022-08-11 11:58] LABS: Glucose Point of Care 125 mg/dl (65-105)
[2022-08-11 14:00] VITALS: BP 121/70; PULSE 66; RESP 22; TEMP 36.9; O2SAT 94
--- NOTE | 2022-08-11 14:13 | PM.DS ---
DS: Admitting Diagnosis Discharge Date 08/11/22 Admitting Diagnosis Abdominal pain DS: Discharge Diagnosis Discharge Diagnosis (1) Small bowel obstruction: Code(s): K56.609 - Unspecified intestinal obstruction, unspecified as to partial versus complete obstruction Status: Acute (2) Thrombocytopenia: Code(s): D69.6 - Thrombocytopenia, unspecified Status: Acute (3) Intractable nausea and vomiting: Code(s): R11.2 - Nausea with vomiting, unspecified Status: Acute (4) Diabetes: Code(s): E11.9 - Type 2 diabetes mellitus without complications Status: Acute (5) Adrenal adenoma: Code(s): D35.00 - Benign neoplasm of unspecified adrenal gland Status: Acute DS: Summary Hospital Course Reason for hospitalization: 62yo female with pre-DM and HTN here for abdominal pain and found to have SBO. Please see H&P for detail Hospital Course: patient presents with severe abdominal pain which began a few days prior to admission. CT scan showed dilated jejunal segment air-fluid levels consistent with partial small-bowel obstruction versus enteritis. She did have a 2.1 cm right adrenal mass. She has no history of malignancy so suspected this was an adenoma. she was made NPO. NG tube was placed. Chest x-ray was clear. Upper GI showed dilated proximal small bowel with transition in the distal jejunum. She has made NPO and started on IV fluids. Repeat imaging showed contrast into the distal colon. Repeat x-rays also showing normal bowel gas pattern now. NG tube was removed. She started clear liquid diet and diet was advanced as tolerated. Hemoglobin dropped to 10.7 but felt related to IV fluids. WBC 13.4 on admission. She had thrombocytopenia on admission which resolved. She also had mildly elevated liver enzymes which also improved. she has significant bandemia as well and image [place] platelets to suggest a bone marrow strained but again her platelet count normalized and a white count remained essentially normal throughout her hospital course after admission. Suspect she may have had a viral illness with enteritis, elevated LFTs, thrombocytopenia and evidence of bone marrow strain. B12 and folate levels were normal. Hepatitis panel was negative. EKG showed normal sinus rhythm with sinus arrhythmia and right bundle branch block which is chronic findings when compared to old EKGs. She feels well. She has been up ambulating. She is tolerating low-fiber diet. Patient overall did well And was able to be discharged home on 08/11/2022. Discharge instructions were discussed with the patient through a family rn radiation oncology. Status at Discharge Cognitive/behavioral status at discharge: stable Time Spent with Patient Time attestation: Total time spent providing and/or coordinating discharge services: 35 minutes Time spent: Greater than 30 minutes Exam Narrative: AF 98.2 116/57 76 14 94% ra Gen - NARD Chest - CTA bilaterally, nml RR CV - RRR S1/S2 Abd - Soft, NT/ND, Positive BS Ext - No pedal edema Psych - Nml mood and affect Skin - Warm and dry DS: Data Data Completed and Pending Labs on day of discharge: Labs from last 24 hours 08/11/22 11:55 POC Capillary Glucose 125 H Discharge Plan Discharge Attending physician on discharge: Aaron Shell Consulting providers: Mark Anthony Palencia ; Fide Mosher Discharging Clinician: Aaron Shell Anticipated Discharge Date/Time: 08/11/22 14:28 Patient Disposition: Home, Self-Care Activity: as tolerated Diet: low fiber Discharge Instructions: Recommend following a low fiber diet for at least one week, and then can advance to a regular diet after a week if not having any symptoms. If you have not had a bowel movement in over 24 hours, then take an over the counter laxative, such as Miralax or milk of magnesia to have a bowel movement. Avoid constipation. Contact
== END 2022-08-11 14:55 | disposition home or self-care (01) | DRG 247 ==
LOC: ANHED 19:10 → ANH3MEDSUR 20:37
PROVIDERS: Chiropractor; Emergency Medicine; Physician Assistant; Surgery; Admitting Provider Internal Medicine; Emergency Provider Emergency Medicine; PCP Registered Nurse; Visit Provider Internal Medicine
DX: K56.609 Unspecified intestinal obstruction, unspecified as to partial versus complete obstruction (principal); D69.6 Thrombocytopenia, unspecified; E11.9 Type 2 diabetes mellitus without complications; E78.5 Hyperlipidemia, unspecified; D35.01 Benign neoplasm of right adrenal gland; R11.2 Nausea with vomiting, unspecified; F17.211 Nicotine dependence, cigarettes, in remission; Z90.49 Acquired absence of other specified parts of digestive tract; Z79.84 Long term (current) use of oral hypoglycemic drugs
CPT/HCPCS: 36415; 71046; 74018; 74019; 74177; 74250; 80048; 80053; 80074; 81001; 82607; 82746; 82948; 83036; 83605; 83690; 83735; 84132; 84484; 85025; 85027; 85055; 85610; 85730; 90714; 93005; 96361; 96374; 96375; 96376; 99285; A9270; C9113; G0378; G0379; J1170; J1650; J2270; J2405; J2550; J3480; J7030; J7040; J7120; Q9967

== ENCOUNTER 2022-09-21 14:16 | Outpatient (CLI) | payer MEDICAID, SELFPAY ==
--- NOTE | ~2022-09-21 | US_ITS ---
EXAMINATION: US renal BI DATE: 09/21/2022 15:22 INDICATION: Multiple renal cysts. TECHNIQUE: Multiple ultrasound grayscale images of the kidneys were obtained. COMPARISON: CT abdomen and pelvis 08/05/2022 FINDINGS: The right kidney measures 11.4 x 4.7 x 6.2 cm. The left kidney measures 10.7 x 5.0 x 5.0 cm. The kidn eys demonstrate normal parenchymal echogenicity. There is no hydronephrosis. The bladder is normal. T here is a 2.3 cm mass in right adrenal gland. IMPRESSION: 1. Normal kidneys. No hydronephrosis. 2. 2.3 cm right adrenal mass. In the absence of known malignancy, this finding is likely an adenoma. Reviewed, dictated and finalized at location A. STAINER
== END 2022-09-21 14:17 | disposition home or self-care (01) ==
PROVIDERS: PCP Registered Nurse; Visit Provider Registered Nurse
DX: N28.1 Cyst of kidney, acquired (principal); E27.8 Other specified disorders of adrenal gland
CPT/HCPCS: 76775

== ENCOUNTER 2022-12-15 09:13 | Outpatient (CLI) | payer MEDICAID, SELFPAY ==
[2022-12-15 10:35] LABS: Cortisol Random 1.16 ug/dL
== END 2022-12-15 09:14 | disposition home or self-care (01) ==
PROVIDERS: PCP Registered Nurse; Visit Provider Internal Medicine Endocrinology, Diabetes & Metabolism
DX: D35.01 Benign neoplasm of right adrenal gland (principal)
CPT/HCPCS: 36415; 82533

== ENCOUNTER 2022-12-19 10:15 | Outpatient (CLI) | payer MEDICAID, SELFPAY ==
--- NOTE | ~2022-12-19 | US_ITS ---
EXAMINATION: US thyroid DATE: 12/19/2022 11:44 INDICATION: Nontoxic goiter. TECHNIQUE: Multiple ultrasound images of the thyroid were obtained. COMPARISON: None. FINDINGS: The right thyroid lobe measures 3.9 x 1.2 x 1.3 cm. The left thyroid lobe measures 3.4 x 1.2 x 1.0 c m. The thyroid is diffusely heterogeneous and hypoechoic. No discrete nodule. There is a coarse calc ification in left thyroid lobe. Vascularity is normal. IMPRESSION: 1. Heterogeneous thyroid, likely chronic lymphocytic (Mita) thyroiditis. Reviewed, dictated and finalized at location A. [facility]
[2022-12-19 11:23] LABS: Alanine Aminotransferase 18 U/L (6-35); Albumin Level 4.6 g/dL (3.5-5.1); Alkaline Phosphatase 70 U/L (38-126); Anion Gap 5 mmol/L (8-16); Aspartate Amino Transferase 22 U/L (14-36); Bilirubin,Total 0.5 mg/dL (0.2-1.3); Blood Urea Nitrogen 15 mg/dL (7-17); Calcium 9.2 mg/dL (8.4-10.2); Carbon Dioxide 30 mmol/L (22-30); Chloride 101 mmol/L (98-107); Cholesterol 235 mg/dL (0-200); Estimated Glomerular Filt Rate > 60; Glucose 105 mg/dL (65-110); HDL Direct 44 mg/dL; Sodium 136 mmol/L (137-145); Triglycerides 203 mg/dL (<150)
[2022-12-19 11:34] LABS: LDL Cholesterol Direct 121 mg/dL
[2022-12-19 11:50] LABS: Thyroid Stimulating Hormone 0.334 uIU/mL (0.465-4.680)
[2022-12-19 12:15] LABS: Thyroid Stimulating Hormone Reflex 0.338 uIU/mL (0.465-4.68)
[2022-12-19 12:17] LABS: Cortisol Random 7.93 ug/dL
[2022-12-19 16:04] LABS: Free T4 Free Thyroxine Reflex 1.18 ng/dL (0.78-2.19)
[2022-12-19 18:35] LABS: Hemoglobin A1C 5.7 % (<5.7)
[2022-12-19 21:51] LABS: Total Triiodothyronine (T3) 1.27 NG/ML (0.97-1.69)
[2022-12-22 12:01] LABS: DHEA-Sulfate 25 mcg/dL (8-188); Insulin Level Total 12.5 uIU/mL (<=19.6)
[2022-12-25 09:03] LABS: Renin 0.77 ng/mL/h (0.25-5.82)
[2022-12-25 10:53] LABS: Metanephrine, Free 36 pg/mL (<=57); Normetanephrine, Free 65 pg/mL (<=148); Total, Free (MN + NMN) 101 pg/mL (<=205)
== END 2022-12-19 10:16 | disposition home or self-care (01) ==
LOC: ANHIMG 10:18
PROVIDERS: PCP Registered Nurse; Visit Provider Internal Medicine Endocrinology, Diabetes & Metabolism
DX: R73.03 Prediabetes (principal)
CPT/HCPCS: 36415; 76536; 80053; 80061; 80299; 82088; 82533; 82627; 83036; 83525; 83835; 84244; 84439; 84443; 84480; 84481

== ENCOUNTER 2023-10-07 16:46 | Emergency (ER) | payer MEDICAID, SELFPAY ==
--- NOTE | ~2023-10-07 | XR_ITS ---
EXAM: XR knee LT min 4V DATE: 10/07/2023 17:46 HISTORY: fall, pain . COMPARISON: None available. FINDINGS: Decreased mineralization. No fracture or dislocation. No lytic or blastic lesion. Moderate tricompartmental osteoarthritis. No erosion or periosteal change. Soft tissues within normal limits. IMPRESSION: No acute osseous finding in the left knee. Reviewed, dictated and finalized at location K. 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
--- NOTE | ~2023-10-07 | XR_ITS ---
EXAM: XR hip LT 2V w AP pelvis DATE: 10/07/2023 17:46 HISTORY: left hip pain . COMPARISON: None available. FINDINGS: Normal mineralization. No fracture or dislocation. No lytic or blastic lesion. Mild bilate ral hip osteoarthritic arthritis. No erosion or periosteal change. Soft tissues within normal limits. IMPRESSION: No acute osseous finding in the pelvis or left hip. Reviewed, dictated and finalized at location K. [employer]
[2023-10-07 16:48] VITALS: BP 156/72; PULSE 67; RESP 14; TEMP 36.8; O2SAT 100
--- NOTE | 2023-10-07 17:17 | ED.LOWEXIN ---
HPI - Extremity Injury (Lower) General Chief Complaint: Extremity Injury, Lower Stated Complaint: fall with left knee pain Time Seen by Provider: 10/07/23 16:58 History of Present Illness HPI Narrative: 63 y/o female reports for evaluation for left knee and hip pain after fall that occurred 2 hours prior to arrival. Patient states she was attempting to get out of her car when her feet slipped and she tried to catch herself on the car door, then her leg got caught and seatbelt and she injured her left knee in the process. She is unsure if her knee was hit by a car door or if she twisted it. States since the incident, she has been having knee pain that is worse when she bears weight and has increased difficulty walking. She also reports a mild amount of pain and to her anterior aspect of her left hip. She states she did not fall to the ground, hit her head or lose consciousness. She denies other injuries acquired including neck pain or back pain. States she took 100 mg of ibuprofen prior to arrival with significant improvement Related Data Home Medications Medication Instructions Recorded Confirmed fenofibrate 40 mg tablet 40 mg PO HS 08/05/22 08/05/22 levothyroxine 125 mcg tablet 125 mcg PO DAILY 08/05/22 08/05/22 meloxicam 7.5 mg tablet 7.5 mg PO PRN PRN ARTHRITIS PAIN 08/05/22 08/05/22 metformin 500 mg tablet 500 mg PO DAILY 08/05/22 08/05/22 metoprolol succinate 25 mg 25 mg PO DAILY 08/05/22 08/05/22 tablet,extended release 24 hr blood-glucose meter (True Metrix 08/06/22 08/06/22 Glucose Meter) Allergies Allergy/AdvReac Type Severity Reaction Status Date / Time No Known Allergies Allergy Verified 10/07/23 16:46 Review of Systems Review of Systems: CONSTITUTIONAL: Denies fever, chills, or sweats. EYES: Denies visual changes, redness, or discharge. ENT: Denies rhinorrhea, congestion, sore throat, or otalgia. CARDIOVASCULAR: Denies chest pain, palpitations, or edema. RESPIRATORY: Denies cough or dyspnea. GASTROINTESTINAL: Denies abdominal pain, nausea, vomiting, or diarrhea. GENITOURINARY: Denies dysuria or hematuria. SKIN: Denies rash or itching. MUSCULOSKELETAL: see HPI NEUROLOGIC: Denies headache, numbness, or weakness. PSYCHIATRIC: Denies anxiety or depression. [facility] Past Medical History Medical History Hyperlipidemia Hypertension Hypothyroidism Surgical History Surgical History History of cholecystectomy Family History Family History Other Family history unknown Social History Social History Smoking packs per day: 1 Smoking cigarettes per day: 20.0 Years smoked: 40 Smoking pack-years: 40.00 Smoking status: Current every day smoker Tobacco type: cigarettes and e-cigarettes/vaping Alcohol intake: never Substance use: never Spiritual care concerns: No Exam Narrative: GENERAL: Well-appearing, well-nourished, and in no acute distress. HEAD: Normocephalic, atraumatic. EYES: PERRLA and EOMI. ENT: Nares clear, no rhinorrhea or epistaxis. Mucous membranes moist. NECK: Supple. no midline cervical spinous tenderness, step-offs or deformities. BACK: No midline thoracolumbar spinous tenderness, step-offs or deformities. CHEST: Clear to auscultation. No respiratory distress. HEART: Regular rate and rhythm. No murmur heard. Normal peripheral pulses. ABDOMEN: Soft, nontender, nondistended, normal active bowel sounds. EXTREMITIES: LLE: mild tenderness to anterior aspect if hip inferior to the ASIS. No overlying skin changes or deformities. Full ROM of hip. Mild edema to the left knee with ecchymosis overlying he medial, proximal tibia. Tenderness overlying the ecchymosis and to the lateral joint line. Full active and passive ROM of knee. No tenderness
[2023-10-07] MEDS: ACETAMINOPHEN 500 MG TABLET 1000 MG PO (17:32)
[2023-10-07] MEDS: LIDOCAINE 5% PATCH 1 PATCH TRANSDERM (17:34)
== END 2023-10-07 18:58 | disposition home or self-care (01) ==
PROVIDERS: Emergency Provider Physician Assistant; PCP Registered Nurse
DX: S76.012A Strain of muscle, fascia and tendon of left hip, initial encounter (principal); S80.02XA Contusion of left knee, initial encounter; I10 Essential (primary) hypertension; E78.5 Hyperlipidemia, unspecified; E03.9 Hypothyroidism, unspecified; F17.210 Nicotine dependence, cigarettes, uncomplicated; F17.290 Nicotine dependence, other tobacco product, uncomplicated; Z90.49 Acquired absence of other specified parts of digestive tract; Z79.84 Long term (current) use of oral hypoglycemic drugs; X58.XXXA Exposure to other specified factors, initial encounter
CPT/HCPCS: 73502; 73564; 99284; A9270

== ENCOUNTER 2024-05-06 18:11 | Emergency (ER) | payer OTHER, SELFPAY ==
[2024-05-06] VITALS (19 sets, daily range): BP systolic 124–137; BP diastolic 52–82; PULSE 55–75; RESP 11–19; TEMP 36.5; O2SAT 97–99
--- NOTE | ~2024-05-06 | XR_ITS ---
XR chest 2V Ordering provider: Kaila Kennedy MD History: 63 years Female with . weakness, SOB; c/f PNA . Comparison: August 05, 2022 FINDINGS: MEDIASTINUM: The cardiac silhouette is not enlarged. LUNGS: No infiltrates, effusions or pneumothorax. OTHER: No free air under the diaphragm. IMPRESSION: No acute cardiopulmonary pathology. Reviewed, dictated and finalized at location A.
--- NOTE | ~2024-05-06 | CT_ITS ---
CT abdomen pelvis w con Ordering provider: Kaila Kennedy MD History: 63 years Female with . N/V; hx obstruction; TTP RLQ . Comparison: August 05, 2022 Technique: CT abdomen and pelvis with IV and without oral contrast. Automated exposure control and it erative reconstruction technique were employed. The dose-length product was 422.25 mGy-cm. 100 mL Omn ipaque 350 was given IV. Findings: VISUALIZED LOWER CHEST: Dependent atelectatic changes. UPPER ABDOMINAL ORGANS: Liver: Mild fat infiltration. Gallbladder: Status post cholecystectomy. Spleen: Normal. Stomach/duodenum: Normal. Pancreas: Normal. Adrenals: Right adrenal adenoma is seen measuring 2.8 x 2.1 cm. Kidneys: Tiny cyst in the right kidney medial aspect of the lower pole. PELVIC ORGANS: The bladder is underfilled with slightly thickened wall. Uterus: Normal. BOWEL AND MESENTERY: Colon: No evidence of diverticulitis. Normal appendix. Small Bowel: Normal. No obstruction. Peritoneum/mesentery: No free air or free fluid. No mesenteric lymphadenopathy. RETROPERITONEUM: Mild atheromatous disease of the abdominal aorta. No retroperitoneal lymphadenopat hy. MUSCULOSKELETAL: Superficial soft tissues: The superficial soft tissues are normal. Bones: Age appropriate degenerative changes of the spine. Bilateral sacroiliacs. IMPRESSION: 1. No evidence of appendicitis, diverticulitis or intestinal obstruction. 2. Right adrenal adenoma which is slightly enlarged compared to previous exam. Follow-up and clinica l correlation advised. 3. Mild fat infiltration of the liver Reviewed, dictated and finalized at location A. IMPRESSION: 1. No evidence of appendicitis, diverticulitis or intestinal obstruction. 2. Right adrenal adenoma which is slightly enlarged compared to previous exam. Follow-up and clinical correlation advised. 3. Mild fat infiltration of the liver
--- NOTE | 2024-05-06 20:18 | ED.WEAKNESS ---
HPI - Weakness General Chief complaint: Weakness Stated complaint: weakness, n/v Time Seen by Provider: 05/06/24 20:17 Source: patient and family (daughter) Mode of arrival: ambulatory Limitations: language barrier (interpretive services [place] #[id number]) History of Present Illness HPI Narrative: Patient presents with multiple areas of pain. She states it started as left lower dental pain that radiates into her jaw and upper chest; the jaw pain started last night. She is also having generalized abdominal pain. She had nausea and 1 episode of non bloody emesis. She feels fatigued. She has a Dentist through [facility] whom she plans on seeing soon. LBM 7pm and was watery non bloody stool. No cough or fever but she is having shortness of breath due to the pain. Not chronically on steroids. Not recently on antibiotics. She is having some dysuria. The last time she had abdominal pain like this she had a blockage and was hospitalized for 1 week. Has been trying over the counter medication for pain. Related Data Home Medications Medication Instructions Recorded Confirmed fenofibrate 40 mg tablet 40 mg PO HS 08/05/22 08/05/22 levothyroxine 125 mcg tablet 125 mcg PO DAILY 08/05/22 08/05/22 meloxicam 7.5 mg tablet 7.5 mg PO PRN PRN ARTHRITIS PAIN 08/05/22 08/05/22 metformin 500 mg tablet 500 mg PO DAILY 08/05/22 08/05/22 metoprolol succinate 25 mg 25 mg PO DAILY 08/05/22 08/05/22 tablet,extended release 24 hr blood-glucose meter (True Metrix 08/06/22 08/06/22 Glucose Meter) Allergies Allergy/AdvReac Type Severity Reaction Status Date / Time No Known Allergies Allergy Verified 10/07/23 16:46 [facility] Past Medical History Medical History Hyperlipidemia Hypertension Hypothyroidism Unspecified intestinal obstruction, unspecified as to partial versus complete obstruction Surgical History Surgical History History of cholecystectomy Family History Family History Other Family history unknown Social History Social History (Updated 05/08/24 @ 15:00 by Kaila Kennedy MD) Social History: Occitan speaking Has a daughter Smoking packs per day: 1 Smoking cigarettes per day: 20.0 Years smoked: 40 Smoking pack-years: 40.00 Smoking status: Current every day smoker Tobacco type: cigarettes and e-cigarettes/vaping Alcohol intake: never Substance use: never Spiritual care concerns: No Exam Narrative: GENERAL: Well-appearing, well-nourished, and in no acute distress. HEAD: Normocephalic, atraumatic. EYES: Non injected, non icteric ENT: Nares clear, no rhinorrhea or epistaxis. Tacky mucous membranes. Buccal membranes without firmness/induration. No tenderness to percussion of jaw/teeth. No appreciable obvious dental or periapical abscess. NECK: Supple. CHEST: Speaking in full sentences. No respiratory distress. HEART: Regular rate and rhythm. . ABDOMEN: Soft, nondistended. TTP of RLQ without rigidity or guarding. EXTREMITIES: Normal range of motion. No edema. SKIN: Warm, dry, no rash. NEURO: No focal deficits. Alert and oriented x3. PSYCH: Normal mood and affect. Course Vital Signs Vital signs: Vital Signs Temperature 97.7 F 05/06/24 18:44 Pulse Rate 60 05/06/24 18:44 Respiratory Rate 16 05/06/24 18:44 Blood Pressure 124/52 L 05/06/24 18:44 Pulse Oximetry 97 05/06/24 18:44 Oxygen Delivery Room Air 05/06/24 18:44 Temperature 97.7 F 05/06/24 18:44 Pulse Rate 75 05/06/24 23:57 Respiratory Rate 15 05/06/24 23:57 Blood Pressure 127/69 05/06/24 23:57 Pulse Oximetry 97 05/06/24 23:57 Oxygen Delivery Room Air 05/06/24 18:44 MDM - Weakness MDM Narrative Medical decision making narrative: Patient presents with left sided jaw/dental pain and now nausea, vomi
--- NOTE | 2024-05-06 20:44 | ECG_ITS ---
Test Date: 2024-05-06 20:58:39 Measurements Intervals [place] Rate: 62 P: -22 GA: 139 QRS: -20 QRSD: 132 T: 21 QT: 373 QTc: 380 Interpretive Statements SINUS RHYTHM RIGHT BUNDLE BRANCH BLOCK [120+ ms QRS DURATION, UPRIGHT V1, 40+ ms S IN I/aVL/V4/V5/V6] No previous ECG available for comparison Electronically Signed On 05-07-2024 11:49:59 CDT by Adan Yang M.D.
[2024-05-06] MEDS: SODIUM CHLORIDE 0.9% IV 1,000 ML 999 ML IV CONT (20:59)
[2024-05-06] MEDS: ONDANSETRON INJ 4 MG/2 ML VIAL IV PUSH (20:59)
[2024-05-06 21:15] LABS: Basophils Absolute Auto 0.1 K/mm3 (0.0-0.1); Basophils Percent Auto 0.4 % (0.2-1.2); Eosinophils Absolute Auto 0.2 K/mm3 (0-0.3); Eosinophils Percent Auto 1.3 % (0-4.4); Hematocrit 40.7 % (37.0-47.0); Hemoglobin 13.7 g/dL (12.0-15.0); Immature Granulocyte Absolute 0.12 K/mm3 (0.00-0.031); Lymphocytes Absolute Auto 1.26 K/mm3 (0.9-3.2); Lymphocytes Percent Auto 10.8 % (18.3-44.2); Mean Corpuscular HGB Conc 33.7 g/dl (32-36); Mean Corpuscular Hemoglobin 30.1 pg (26-34); Mean Corpuscular Volume 89.5 fl (80-100); Mean Platelet Volume 10.4 fl (7.4-10.4); Monocytes Absolute Auto 0.7 K/mm3 (0.1-0.6); Monocytes Percent Auto 6.3 % (2.6-8.5); Neutrophils Absolute Auto 9.3 K/mm3 (1.3-6.7); Neutrophils Percent Auto 80.2 % (45.5-73.1); Platelet Count Result 226 k/mm3 (150-375); Red Blood Count 4.55 M/mm3 (4.2-5.4); Red Cell Distribution Width 12.7 % (11.5-14.5); White Blood Count 11.7 K/mm3 (4.5-10.0)
[2024-05-06 21:24] LABS: Lactic Acid Reflex 1.2 mmol/L (0.7-2.0)
[2024-05-06 21:25] LABS: Alanine Aminotransferase 25 U/L (6-35); Albumin Level 4.5 g/dL (3.5-5.1); Alkaline Phosphatase 93 U/L (38-126); Anion Gap 7 mmol/L (4-12); Aspartate Amino Transferase 33 U/L (14-36); Bilirubin,Total 0.7 mg/dL (0.2-1.3); Blood Urea Nitrogen 17 mg/dL (7-17); Carbon Dioxide 26 mmol/L (22-30); Chloride 106 mmol/L (98-107); Estimated CRCL calculation 57 ml/min; Estimated Glomerular Filt Rate > 60; Glucose 129 mg/dL (65-110); Lipase 21 U/L (23-300); Magnesium 2.2 mg/dL (1.6-2.3); Potassium 4.4 mmol/L (3.4-5.0); Sodium 139 mmol/L (137-145)
[2024-05-06 21:52] LABS: Influenza A QL RT-PCR Negative (Negative); Influenza B QL RT-PCR Negative (Negative); RSV RNA, RT-PCR Negative (Negative); SARS-CoV-2 RNA PCR Negative (Negative)
[2024-05-06] MEDS: MORPHINE SULFATE (*CRX) 4 MG/ML INJ IV PUSH (23:35)
[2024-05-06] MEDS: AMOXICILLIN/CLAVULANATE K 875-125 MG TAB 1 TABLET PO (23:52)
== END 2024-05-06 23:59 | disposition home or self-care (01) ==
PROVIDERS: Emergency Provider Student in an Organized Health Care Education/Training Program; PCP Registered Nurse
DX: K08.89 Other specified disorders of teeth and supporting structures (principal); D72.829 Elevated white blood cell count, unspecified; I45.10 Unspecified right bundle-branch block; D35.01 Benign neoplasm of right adrenal gland; K76.0 Fatty (change of) liver, not elsewhere classified; R10.9 Unspecified abdominal pain; R11.2 Nausea with vomiting, unspecified; E78.5 Hyperlipidemia, unspecified; E03.9 Hypothyroidism, unspecified; I10 Essential (primary) hypertension; F17.210 Nicotine dependence, cigarettes, uncomplicated; Z20.822 Contact with and (suspected) exposure to COVID-19
CPT/HCPCS: 36415; 71046; 74177; 80053; 83605; 83690; 83735; 85025; 87637; 93005; 96361; 96374; 96375; 99284; A9270; J2270; J2405; J7030; Q9967